=== PATIENT | female | born 1935 | race Caucasian/White ===

== ENCOUNTER → 2016-10-29 | Outpatient (CLI) | payer MEDICARE ==
[2016-10-29 11:43] LABS: Blood Urea Nitrogen 12 mg/dL (7-17); Non-African American GFR(MDRD) >60 (>60 ml/min/1.73 sqM)
--- NOTE | 2016-10-29 13:07 | CT ---
EXAMINATION TYPE: CT soft tissue neck w con DATE OF EXAM: 10/29/2016 12:44 PM COMPARISON: NONE HISTORY: Mass bas of tongue CT DLP: 389.2 mGycm CONTRAST: CT scan of the neck is performed with IV Contrast, patient injected with 95 mL of Omnipaque 300. Contrast enhanced CT of the neck was performed from the skull base through the lung apices. AIRWAY: At the base of the tongue on the right there is a homogeneously enhancing lesion measuring 1.2 x 0.6 x 0.8 cm. Direct visualization and tissue diagnosis is advised. The remaining supraglottic, glottic, and subglottic portions of the airway appear patent and free of additional mass. SALIVARY GLANDS: The submandibular and parotid glands are free of mass or inflammatory process. THYROID GLAND: No nodules or masses seen. LYMPH NODES: No adenopathy seen greater than 1cm. LUNG APICES: Linear density right upper lobe. OTHER: There is a homogeneously enhancing 2.2 x 2.0 x 1.3 cm mass situated between the esophagus and thoracic spine at the approximate C7-T1 level. This mass is nonspecific. Vascular structures are pat ent. Mild degenerative change cervical spine. No abscess seen. IMPRESSION: 1.At the base of the tongue on the right there is a homogeneously enhancing lesion measuring 1.2 x 0. 6 x 0.8 cm. Direct visualization and tissue diagnosis is advised. 2.There is a homogeneously enhancing 2.2 x 2.0 x 1.3 cm mass situated between the esophagus and thora cic spine at the approximate C7-T1 level. This mass is nonspecific.
== END | disposition home or self-care (01) ==
LOC: RADCTMAIN 11:02
PROVIDERS: ATTEND Otolaryngology
DX: K14.8 Other diseases of tongue (principal); K22.8 Other specified diseases of esophagus
CPT/HCPCS: 82565; 84520; 70491; 36415; Q9967

== ENCOUNTER 2016-11-13 11:54 | Day surgery (SDC) | payer MEDICARE ==
[2016-11-10 13:07] VITALS: BMI 37.8
[~2016-11-13 11:54] MED LIST: DEXAMETHASONE SOD PHOSPHATE 10 MG/ML 1 ML VIAL IV ONE; DEXAMETHASONE SOD PHOSPHATE 4 MG/ML 1 ML VIAL IV ONE; FAMOTIDINE 20 MG/2 ML VIAL IV ONE; HYDROmorphone 1 MG/ML 1 ML SYRINGE IVP PRN; LACTATED RINGERS 1,000 ML IV SCH; ONDANSETRON 4 MG/2 ML VIAL IVP ONE; Pre Op ABX Message 1 EACH MISC MISCELLANE ONE
[2016-11-13] MEDS ORDERED: LACTATED RINGERS 1,000 ML IV ONE ×2 (12:40→15:41)
[2016-11-13] MEDS ORDERED: LIDOCAINE 1% 20 ML VIAL (10MG/ML) FOR IV START INTRADERMA ONE (12:41)
[2016-11-13 13:20] LABS: INR 1.1 (<1.1); Prothrombin Time 10.7 sec (9.0-12.0)
[2016-11-13] MEDS ORDERED: NALOXONE 0.4 MG/ML 1 ML VIAL ONE (14:10)
[2016-11-13] MEDS ORDERED: MIDAZOLAM 2 MG/2 ML VIAL ONE (14:10)
[2016-11-13] MEDS ORDERED: LIDOCAINE 1% INJ 10MG/ML (20 ML MDV) ONE (14:10)
[2016-11-13] MEDS ORDERED: PROPOFOL 10 MG/ML 20 ML VIAL IV ONE (14:10)
[2016-11-13] MEDS ORDERED: fentaNYL (PF) 50 MCG/ML 2 ML AMP ONE (14:10)
[2016-11-13] MEDS ORDERED: SUCCINYLCHOLINE CHLORIDE 100 MG/5 ML SYR IV ONE (14:10)
[2016-11-13 15:16] VITALS: TEMP 997.1
[2016-11-13] MEDS ORDERED: hydrALAZINE HCL 20 MG/ML 1 ML VIAL IVP ONE (15:16)
--- NOTE | 2016-11-13 15:21 | P.OP ---
Date of Procedure: 11/13/16 Preoperative Diagnosis: Mass base of tongue right side Cough Postoperative Diagnosis: Same Procedure(s) Performed: Direct microscopic laryngoscopy and biopsy of right base of tongue lesion Bronchoscopy Anesthesia: JUAN MA Surgeon: Junior Burns Estimated Blood Loss (ml): 5 Pathology: other (Base of tongue right side) Condition: stable Disposition: PACU Indications for Procedure: This patient had an MRI scan done demonstrating a mass measuring 1.6 x 1.2 cm to the right the midline between the esophagus and C7 and T1 vertebrae. 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 Upon my examination the patient was found have a mass of the right base of tongue and biopsy was recommended. For this mass is located between the esophagus and the cervical vertebrae she was sent to Dr. Neymar Saravia office for a consultation. Operative Findings: Patient had evidence of a right base of tongue a lymphoid lesion that was removed and biopsied. Patient had evidence of some chronic bronchitis upon bronchoscopy but no specific tumors or masses are seen. We did not do the esophagoscopy as we will defer to Dr. Blackmon 10:00. Description of Procedure: Patient was taken to the operative room and placed in the supine position. A general inhalation anesthetic was administered to the patient by mask and subsequently intubated with a cuffed endotracheal tube by the department of anesthesia. A Jako laryngoscope was placed into the patient's mouth with care to avoid any trauma to the lips teeth gums and tongue. Jako laryngoscope was inserted tooth guard was placed and the entire Karen and hypopharynx was evaluated including the piriform sinus, aryepiglottic folds, true and false cords, etc. etc. Was placed on suspension on a Lewy and magnified with a microscope. A lesion of the right base of tongue was removed with biopsy forceps and bleeding stopped spontaneously. Instrumentation was removed and a bronchoscope was then inserted and all 12 segments of the lungs were evaluated. There were no signs of any endobronchial lesions. There was evidence of a large amount of mucus of the pulmonary tree. Patient tolerated this well and follow-up will be in the office in 1 week.
[2016-11-13 15:41] VITALS: RESP 18
[2016-11-13 16:31] VITALS: BP 110/67; PULSE 87
== END 2016-11-13 16:53 | disposition home or self-care (01) ==
LOC: OR 11:54
PROVIDERS: ATTEND Otolaryngology
DX: K14.0 Glossitis (principal); I10 Essential (primary) hypertension; I48.91 Unspecified atrial fibrillation; Z79.01 Long term (current) use of anticoagulants; E07.9 Disorder of thyroid, unspecified; F41.9 Anxiety disorder, unspecified; E78.00 Pure hypercholesterolemia, unspecified; H40.9 Unspecified glaucoma; Z79.2 Long term (current) use of antibiotics; Z79.52 Long term (current) use of systemic steroids; Z79.899 Other long term (current) drug therapy; Z88.5 Allergy status to narcotic agent; Z88.0 Allergy status to penicillin; Z91.09 Other allergy status, other than to drugs and biological substances
CPT/HCPCS: 88305; 85610; 31535; 31622; J2250; J0360; J1100; J2310; J2405; J2001; J3010; J1170; J0330; J2704

== ENCOUNTER → 2016-12-20 | Outpatient (CLI) | payer MEDICARE ==
--- NOTE | 2016-12-21 11:10 | PE ---
EXAMINATION TYPE: PET CT fusion skull to thigh DATE OF EXAM: 12/20/2016 1:56 PM COMPARISON: CT neck 10/29/2016 Prior PET/CT: None HISTORY: Head and neck cancer TECHNIQUE: Following the intravenous administration of 12.58 mCi of F-18 FDG, whole body images are performed from the skull base to the midthigh. Images are reviewed on the computer in the coronal, a xial, and sagittal planes. Reconstructed rotating images are created on independent workstation and reviewed on the computer. A localization and attenuation correction CT is performed in conjunction with the PET scan. DLP: 86.47 and 395.99 mGycm SCAN: Initial Blood glucose: 115 mg/dL Average Mediastinum SUV: 2.53 Average Liver SUV: 2.93 FINDINGS: NECK: The abnormal density identified at the thoracic inlet within the base of the neck is less dist inct on these noncontrast localization CT images. This measures 1.9 Hounsfield units likely inflammat ory in nature. Suspicious hypermetabolic activity is not identified. A low-grade neoplasm however can not be entirely excluded. Dedicated CT neck images are obtained and reviewed. SUV value of the neck mass the thoracic inlet is 1.8 on these images. Subtle slight increased uptake in the posterior right tongue may be present est imated at 4 SUV value. PET Image 32. THORAX: No abnormal uptake ABDOMEN: No abnormal uptake PELVIS: No abnormal uptake OSSEOUS STRUCTURES: No abnormal uptake LOCALIZATION CT: Diverticular changes are within the sigmoid colon. The density posterior to the trac hea at the thoracic inlet is estimated to measure 1.9 x 1.3 cm on this examination. This is less well delineated within the previous CT neck. Ascending thoracic aorta at the main pulmonary artery measur es 3.1 cm. The main pulmonary artery at the bifurcation measures 2.5 cm. Coronary artery calcificatio n is noted. No suspicious changes are evident CT neck localization images. There is anterior abdomina l wall hernia containing mesenteric fat at the periumbilical region. COMPARISON: Neck mass appears stable from comparison bolus well visualized lack of intravenous contra st IMPRESSION: 1. Neck mass identified on CT 10/29/2016 is again identified although no suspicious radiotracer accumulation is evident to suggest hy permetabolic neoplasm. Consider monitoring with CT with contrast. This area likely represents benign etiology. 2. There is some subtle increased uptake along the posterior right tongue region which could be evalu ated with direct visualization.
== END ==
LOC: RADPETMAIN 10:23
PROVIDERS: ATTEND Thoracic Surgery (Cardiothoracic Vascular Surgery)
DX: R22.1 Localized swelling, mass and lump, neck (principal)
CPT/HCPCS: 78815; A9552

== ENCOUNTER → 2017-07-10 | Outpatient (CLI) | payer MEDICARE ==
[2017-07-10 14:00] LABS: Blood Urea Nitrogen 18 mg/dL (7-17); Non-African American GFR(MDRD) >60 (>60 ml/min/1.73 sqM)
--- NOTE | 2017-07-10 16:02 | CT ---
EXAMINATION TYPE: CT chest w con DATE OF EXAM: 07/10/2017 COMPARISON: PET/CT dated 12/20/2016. HISTORY: Localized swelling/mass in neck. History of head and neck cancer. CT DLP: 455.5 mGycm. Automated Exposure Control for Dose Reduction was Utilized. TECHNIQUE: CT scan of the thorax is performed following with IV Contrast, patient injected with 100 mL of Omnipaque 300. FINDINGS: LUNGS: The lungs are grossly clear, there is no concerning parenchymal mass or nodule identified. M inimal subsegmental atelectasis is seen within the posterior medial right lung base and dependent lef t lower lung. Pleural parenchymal scarring is also noted within the anterior left lower lung. There i s no pleural effusion or pneumothorax seen. The tracheobronchial tree is patent. MEDIASTINUM: There are no greater than 1 cm hilar or mediastinal lymph nodes. No pericardial effusi on is seen. OTHER: Placing mass effect upon the esophagus again at the level of the thoracic inlet within the pre vertebral space there is a similar appearing 2.0 x 1.3 cm oval, well-circumscribed hyperdense mass th at is unchanged from the prior exam of 10/29/2016. This was noted areas non-hypermetabolic on the previ ous PET/CT dated 12/18/2016. Mild multilevel degenerative changes of thoracic spine are noted. IMPRESSION: 1. Stable oval 2.0 cm well-circumscribed mass posterior to the esophagus at the thoracic inlet unchan ged from the exam of 10/29/2016 and favored to be benign although continued CT surveillance is again re commended. 2. No new pulmonary nodule or mass. No mediastinal adenopathy. No suspicious osseous lesion.
== END | disposition home or self-care (01) ==
LOC: RADCTMAIN 13:25
PROVIDERS: ATTEND Thoracic Surgery (Cardiothoracic Vascular Surgery)
DX: R22.2 Localized swelling, mass and lump, trunk (principal)
CPT/HCPCS: 82565; 84520; 71260; 36415; Q9967

== ENCOUNTER → 2018-08-04 | Outpatient (CLI) | payer MEDICARE ==
[2018-08-04 10:27] LABS: Blood Urea Nitrogen 12 mg/dL (7-17)
--- NOTE | 2018-08-04 11:10 | CT ---
EXAMINATION TYPE: CT chest w con DATE OF EXAM: 08/04/2018 COMPARISON: 07/10/2017 and 12/20/2016 HISTORY: 83-year-old female localized swelling, neck mass, Follow up scan. TECHNIQUE: Contiguous axial scanning of the chest after the administration of 100 mL of Isovue M300. Coronal/sagittal reconstructions performed. CT DLP: 769mGycm. Automatic exposure control utilized for a dose reduction. FINDINGS: Heart upper limits of normal in size without pericardial effusion. Mitral annular calcifications are present as well as coronary vessel calcifications. Aorta normal caliber with conventional arch vessel branching anatomy. No thoracic lymphadenopathy by CT size criteria. Biapical pleural parenchymal scarring. The nodule in the posterior right paraesophageal region at the level of the thoracic inlet is redemon strated. It measures 2.1 x 1.2 cm versus 2.0 x 1.3 cm on 07/10/2017 and 1.9 x 1.3 cm on 12/20/2016, no t significantly changed allowing for some differences in measurement technique. It has relatively sim ilar enhancement as the atrophic thyroid gland. Mild centrilobular emphysema and some scattered interstitial scarring especially posteriorly in the m id and lower lungs. Some cicatricial volume loss is present in the medial right lower lobe. No consol idation or pleural effusion. Mild intrahepatic and extrahepatic biliary ductal dilatation appears chronic in this patient, stable from 07/10/2017. Diverticulum of the second portion of the duodenum ejecting into the pancreatic head region. 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 Bones: Endplate spondylosis mid to lower thoracic spine. Moderate degenerative disc disease. No osseo us destructive process. IMPRESSION: 1. Note that only the chest was imaged. Allowing for some differences in measurement technique, the o void 2.1 x 1.2 cm nodule behind the esophagus at the level of the thoracic inlet is unchanged from . This suggests a benign etiology. Enhancement is similar to the atrophic thyroid gland. Possi ble ectopic/exophytic thyroid nodule. 2. COPD with mild emphysema and scattered interstitial scarring. 3. Numerous cortical defects within the partially visualized right kidney suggests sequela of prior v ascular or infectious insults.
== END | disposition home or self-care (01) ==
LOC: RADCTMAIN 09:56
PROVIDERS: ATTEND Thoracic Surgery (Cardiothoracic Vascular Surgery)
DX: J43.9 Emphysema, unspecified (principal); J84.9 Interstitial pulmonary disease, unspecified; R91.1 Solitary pulmonary nodule
CPT/HCPCS: 82565; 84520; 71260; 36415; Q9967

== ENCOUNTER → 2019-09-14 | Outpatient (CLI) | payer MEDICARE ==
--- NOTE | 2019-09-14 13:31 | CT ---
EXAMINATION TYPE: CT chest w con DATE OF EXAM: 09/14/2019 COMPARISON: Chest CT August 04, [address] July 10, 2017 HISTORY: Localized swelling, mass, lump on anterior chest. CT DLP: 774 mGycm. Automated Exposure Control for Dose Reduction was Utilized. TECHNIQUE: CT scan of the thorax is performed following with IV Contrast, patient injected with 100 mL of Isovue 300. FINDINGS: LUNGS: There is medial right lower lobe linear scarring redemonstrated extending from the hilum. Ther e is additional scattered mild linear scarring and/or atelectasis in both bases. No suspicious nodule s or masses. There is no pleural effusion or pneumothorax seen. Elevated right hemidiaphragm is redem onstrated. The tracheobronchial tree is patent. MEDIASTINUM: There are no new greater than 1 cm hilar or mediastinal lymph nodes. No cardiomegaly o r pericardial effusion is seen. There is redemonstration of lesion while the findings at level of th oracic inlet prevertebral region measuring 2.1 x 1.3 cm current study image. In just posterior to the esophagus that is unchanged from prior studies. On current study there may be contiguous extension f rom the right thyroid lobe with narrow thyroid tissue axial image 7. Thyroid gland is stable and some what small in size otherwise. OTHER: Slight scoliotic curvature with multilevel spurring in the spine. Severe spurring lower thorac ic levels anteriorly again seen. Mild central intrahepatic and extra hepatic biliary dilatation coron al image 30 not significantly changed from prior studies. IMPRESSION: Overall stable findings, stable ovoid anterior superior mediastinal lesion at level of th oracic inlet strongly favored benign given interval stability and ametabolic finding on PET 2017, I d o favor ectopic thyroid or exophytic thyroid nodule given its enhancement similar to adjacent thyroid and possible small isthmus of tissue on current study extending from small size thyroid gland.
== END ==
LOC: RADCTMAIN 11:22
PROVIDERS: ATTEND Thoracic Surgery (Cardiothoracic Vascular Surgery)
DX: R22.2 Localized swelling, mass and lump, trunk (principal)
CPT/HCPCS: 71260; Q9967

== ENCOUNTER 2020-01-19 13:00 | Emergency (ER) | payer MEDICARE ==
[2020-01-19 13:10] VITALS: BP 131/87; PULSE 103; RESP 20; TEMP 98.3
[2020-01-19] MEDS ORDERED: SILVER NITRATE APPLICATOR 1 EACH STICK..EA. TOPICAL STA (13:22)
--- NOTE | 2020-01-19 13:34 | ED ---
ENT HPI - General Chief complaint: ENT Stated complaint: bloody nose Time Seen by Provider: 01/19/20 13:11 Source: patient Mode of arrival: ambulatory Limitations: no limitations - History of Present Illness Initial comments: Patient is a 84-year-old female with history of A. fib presenting to emergency Department with a chief complaint of a nosebleed. Patient reports the last 2 weeks this is her third epistaxis. Patient reports most recent was 5 days ago. Patient reports the epistaxis has occurred for the past 2 hours. States she attempted pressure and Afrin with minimal improvement in symptoms. States she currently takes Coumadin for her A. fib. Denies any headaches, lightheadedness, dizziness nausea vomiting diarrhea. Denies any direct trauma to the nose. - Related Data Home Medications Medication Instructions Recorded Confirmed Atorvastatin [Lipitor] 40 mg PO HS 03/27/14 11/10/16 DULoxetine HCL [Cymbalta] 60 mg PO HS 03/27/14 11/10/16 Latanoprost Ophth [Xalatan 0.005%] 1 drops BOTH EYES HS 03/27/14 11/10/16 Levothyroxine Sodium [Synthroid] 100 mcg PO DAILY 03/27/14 11/10/16 Lisinopril [Zestril] 10 mg PO HS 03/27/14 11/10/16 Triamterene/Hydrochlorothiazid 0.5 tab PO DAILY 03/27/14 11/10/16 [Maxzide 37.5-25] hydrALAZINE HCL [Apresoline] 25 mg PO DAILY 03/27/14 11/10/16 Calcium Carbonate/Vitamin D3 1 each PO BID 11/10/16 11/10/16 [Calcium 600-Vit D3 400 Cap[place]] Cetirizine HCl [Zyrtec] 10 mg PO DAILY PRN 11/10/16 11/10/16 Dorzolamide 2% [Trusopt 2%] 1 drops BOTH EYES BID 11/10/16 11/13/16 Multivitamins, Thera [Multivitamin] 1 tab PO DAILY 11/10/16 11/10/16 Warfarin Sodium 3 tab PO SUMOTUTHFRSA 11/10/16 11/10/16 Warfarin [Coumadin] 3 mg PO WE 11/10/16 11/10/16 traMADol HCL/ACETAMINOPHEN 2 tab PO Q6HR PRN 11/10/16 11/10/16 [Ultracet 37.5-325] Allergies Allergy/AdvReac Type Severity Reaction Status Date / Time adhesive tape Allergy IV BANDAGE Verified 01/19/20 13:10 CAUSED SKIN REDNESS codeine Allergy headache Verified 01/19/20 13:10 hydroxyzine HCl Allergy Rash/Hives Verified 01/19/20 13:10 [From Vistaril] hydroxyzine pamoate Allergy Rash/Hives Verified 01/19/20 13:10 [From Vistaril] Penicillins Allergy Rash/Hives Verified 01/19/20 13:10 Review of Systems ROS Statement: Those systems with pertinent positive or pertinent negative responses have been documented in the HPI. ROS Other: All systems not noted in ROS Statement are negative. Past Medical History Past Medical History: Cancer, Fibromyalgia, Hyperlipidemia, Hypertension, Osteoarthritis (OA), Thyroid Disorder Additional Past Medical History / Comment(s): varicose veins, glaucoma, uses cane, has scar tissue onrt kidney from nephritis as teen, hx skin cancer History of Any Multi-Drug Resistant Organisms: None Reported Past Surgical History: Cholecystectomy, Hysterectomy, Joint Replacement, Tonsillectomy Additional Past Surgical History / Comment(s): rt knee replacement 2013 Past Anesthesia/Blood Transfusion Reactions: Motion Sickness Past Psychological History: Anxiety Smoking Status: Never smoker Past Alcohol Use History: None Reported Past Drug Use History: None Reported - Past Family History Mother Family Medical History: Cancer Son(s) Family Medical History: Cancer General Exam Limitations: no limitations General appearance: alert, in no apparent distress Head exam: Present: atraumatic, normocephalic, normal inspection Eye exam: Present: normal appearance, PERRL, EOMI Pupils: Present: normal accommodation ENT exam: Present: normal exam ( epistaxis), mucous membranes moist, TM's normal bilaterally, normal external ear exam. Absent: normal oropharynx (Able to visualize a right nostril anterior epistaxis) Neck exam: Present: normal inspection, full ROM Respiratory exam: Present: normal lung sounds bilaterally Cardiovascular Exam: Present: regular rate, normal rhythm, normal heart sounds Extremities exam: Present: normal inspection, full ROM Back exam: Present: normal inspection, full ROM Neurological exam: Present: alert, oriented X3 Psychiatric exam: Present: normal affect, normal mood Skin exam: Present: warm, dry, intact, normal color Course Vital Signs 05/21/20 13:07 Temperature 98.3 F Pulse Rate 103 H Respiratory 20 Rate Blood Pressure 131/87 O2 Sat by Pulse 99 Oximetry Procedures - Procedures Initial comment: Right nostril, anterior epistaxis, silver nitrate cautery stick, patient tolerated procedure well, procedure successful. Medical Decision Making - Medical Decision Making Patient is an 84-year-old female with history of A. fib and currently taking Coumadin presenting to emergency Department with a chief complaint of a nosebleed. On exam I was able to visualize an anterior nosebleed in the right nostril. Silver nitrate cautery stick was used. Patient tolerated procedure well. The bleeding resolved. INR of 1.4. Patient feels well is ready go home. Patient advised not to stay close to highly vented areas. Advised to apply Vaseline in the morning and night. Also advised to use [place] few Times a day to avoid epistaxis. Return parameters were thoroughly discussed the patient is understanding and agreeable. Case discussed with physician. - Lab Data Lab Results 01/19/20 Range/Units 13:32 PT 14.0 H (9.0-12.0) sec INR 1.4 H (<1.2) APTT 29.3 (22.0-30.0) sec Disposition Clinical Impression: Acute anterior epistaxis Disposition: HOME SELF-CARE Condition: Stable Instructions (If sedation given, give patient instructions): Nosebleed (ED) Additional Instructions: Follow-up with primary care. Return to emergency department if symptoms worsen. Is patient prescribed a controlled substance at d/c from ED?: No Referrals: Julio Zambrano DO [Primary Care Provider] - 1-2 days Time of Disposition: 14:18
[2020-01-19 14:09] LABS: INR 1.4 (<1.2); Partial Thromboplastin Time 29.3 sec (22.0-30.0)
== END 2020-01-19 14:45 | disposition home or self-care (01) ==
LOC: EC 13:00
DX: R04.0 Epistaxis (principal); I48.91 Unspecified atrial fibrillation; M79.7 Fibromyalgia; E78.5 Hyperlipidemia, unspecified; I10 Essential (primary) hypertension; M19.90 Unspecified osteoarthritis, unspecified site; E07.9 Disorder of thyroid, unspecified; F41.9 Anxiety disorder, unspecified; H40.9 Unspecified glaucoma; Z79.890 Hormone replacement therapy; Z79.01 Long term (current) use of anticoagulants; Z79.899 Other long term (current) drug therapy; Z88.5 Allergy status to narcotic agent; Z91.048 Other nonmedicinal substance allergy status; Z88.8 Allergy status to other drugs, medicaments and biological substances; Z88.0 Allergy status to penicillin; Z85.828 Personal history of other malignant neoplasm of skin; Z99.89 Dependence on other enabling machines and devices; Z96.659 Presence of unspecified artificial knee joint
CPT/HCPCS: 30901; 36415; 85610; 85730; 99283

== ENCOUNTER 2020-09-04 11:48 | Inpatient (IN) | payer MEDICARE ==
[2020-09-04] MEDS ORDERED: SODIUM CHLORIDE 0.9% 500 ML 500 ML IV STA ×2 (12:29→13:48)
--- NOTE | 2020-09-04 12:33 | ED ---
General Adult HPI - General Source: patient, family, RN notes reviewed Mode of arrival: wheelchair Limitations: no limitations <Tyree Sheppard - Last Filed: 09/04/20 14:25> <Tacos Cardenas - Last Filed: 09/04/20 14:50> - General Chief complaint: Weakness Stated complaint: mobility issues, weakness Time Seen by Provider: 09/04/20 12:19 - History of Present Illness Initial comments: 85-year-old female with a past medical history of fibromyalgia, hyperlipidemia, hypertension, osteoarthritis, right knee replacement presents to the emergency room for a chief complaint of weakness. Daughter reports that patient has been more weak for the past couple days at home. States she normally gets around well with a walker however daughter is having to help her with the help of her brother. States she is somewhat confused as well which is not normal for patient. Daughter is concerned she may have a urinary tract infection. No fevers or chills. Daughter states that her knees are hurting and she was supposed to have one replaced but is not a good surgical candidate. She thinks this is contributing to her difficulty walking.Patient has no other complaints at this time including shortness of breath, chest pain, abdominal pain, nausea or vomiting, headache, or visual changes. (Tyree Sheppard) - Related Data Home Medications Medication Instructions Recorded Confirmed Atorvastatin [Lipitor] 40 mg PO HS 03/27/14 09/04/20 DULoxetine HCL [Cymbalta] 60 mg PO HS 03/27/14 09/04/20 Latanoprost Ophth [Xalatan 0.005%] 1 drops BOTH EYES HS 03/27/14 09/04/20 Levothyroxine Sodium [Synthroid] 100 mcg PO DAILY 03/27/14 09/04/20 Lisinopril [Zestril] 10 mg PO DAILY 03/27/14 09/04/20 Triamterene/Hydrochlorothiazid 0.5 tab PO DAILY 03/27/14 09/04/20 [Maxzide 37.5-25] hydrALAZINE HCL [Apresoline] 25 mg PO HS 03/27/14 09/04/20 Calcium Carbonate/Vitamin D3 1 tab PO DAILY 11/10/16 09/04/20 [Calcium 600-Vit D3 400 Caplet] Cetirizine HCl [Zyrtec] 10 mg PO DAILY PRN 11/10/16 09/04/20 Dorzolamide 2% [Trusopt 2%] 1 drops BOTH EYES BID 11/10/16 09/04/20 Warfarin Sodium 2.5 tab PO Q48H 11/10/16 09/04/20 Warfarin [Coumadin] 5 mg PO Q48H 11/10/16 09/04/20 traMADol HCL/ACETAMINOPHEN 1 tab PO BID 11/10/16 09/04/20 [Ultracet 37.5-325] Allergies Allergy/AdvReac Type Severity Reaction Status Date / Time adhesive tape Allergy IV BANDAGE Verified 09/04/20 13:57 CAUSED SKIN REDNESS codeine Allergy headache Verified 09/04/20 13:57 hydroxyzine HCl Allergy Rash/Hives Verified 09/04/20 13:57 [From Vistaril] hydroxyzine pamoate Allergy Rash/Hives Verified 09/04/20 13:57 [From Vistaril] Penicillins Allergy Rash/Hives Verified 09/04/20 13:57 Review of Systems ROS Other: All systems not noted in ROS Statement are negative. <Tyree Sheppard - Last Filed: 09/04/20 14:25> ROS Other: All systems not noted in ROS Statement are negative. <Tacos Cardenas - Last Filed: 09/04/20 14:50> ROS Statement: Those systems with pertinent positive or pertinent negative responses have been documented in the HPI. Past Medical History Past Medical History: Cancer, Fibromyalgia, Hyperlipidemia, Hypertension, Osteoarthritis (OA), Thyroid Disorder Additional Past Medical History / Comment(s): varicose veins, glaucoma, uses cane, has scar tissue onrt kidney from nephritis as teen, hx skin cancer History of Any Multi-Drug Resistant Organisms: None Reported Past Surgical History: Cholecystectomy, Hysterectomy, Joint Replacement, Ton sillectomy Additional Past Surgical History / Comment(s): rt knee replacement 2013 Past Anesthesia/Blood Transfusion Reactions: Motion Sickness Past Psychological History: Anxiety Past Alcohol Use History: None Reported Past Drug Use History: None Reported - Past Family History Mother Family Medical History: Cancer Son(s) Family Medical History: Cancer <Tyree Sheppard P - Last Filed: 09/04/20 14:25> General Exam Limitations: no limitations General appearance: alert, in no apparent distress Head exam: Present: atraumatic, normocephalic, normal inspection Eye exam: Present: normal appearance ENT exam: Present: normal exam, mucous membranes moist Neck exam: Present: normal inspection. Absent: tenderness, meningismus, lymphadenopathy Respiratory exam: Present: normal lung sounds bilaterally. Absent: respiratory distress, wheezes, rales, rhonchi, stridor Cardiovascular Exam: Present: tachycardia, irregular rhythm GI/Abdominal exam: Present: soft, normal bowel sounds. Absent: distended, tenderness, guarding, rebound, rigid Neurological exam: Present: alert, oriented X3 <Tyree Sheppard - Last Filed: 09/04/20 14:25> Course <Tacos Cardenas - Last Filed: 09/04/20 14:50> Vital Signs 09/04/20 11:56 Temperature 97.7 F Pulse Rate 78 Respiratory 16 Rate Blood Pressure 126/110 O2 Sat by Pulse 97 Oximetry - Reevaluation(s) Reevaluation #1: 09/04/20 14:50 PA supervision: I personally evaluate this case patient present with complaints of weakness. She does have evidence of dehydration a urinary tract infection as well as hypercalcemia likely on the basis of dehydration. Did discuss the case with Dr. Zambrano. Patient be admitted place on appropriate antibiotics and IV fluids. (Tacos Cardenas) EKG Findings - EKG Comments: EKG Findings:: Atrial fibrillation, ventricular rate 107, QRS duration 76, QTC 419 <Tyree Sheppard - Last Filed: 09/04/20 14:25> Medical Decision Making - Lab Data Result diagrams: 09/04/20 12:44 09/04/20 12:44 <Tyree Sheppard - Last Filed: 09/04/20 14:25> - Lab Data Result diagrams: 09/04/20 12:44 09/04/20 12:44 <Tacos Cardenas - Last Filed: 09/04/20 14:50> - Medical Decision Making Vitals are stable however patient is in atrial fibrillation which she has a history of and takes coumadin. Heart rate in the low 110s generally. Laboratory evaluation does reveal leukocytosis as well as dehydration with hemoconcentration and BUN to creatinine ratio of 32. Hypercalcemia likely secondary to dehydration, patient given fluids. Magnesium is 1.5 this was replaced orally. She does also have evidence of a urinary tract infection with positive nitrates small leukocyte esterase and 5 white blood cells. This is treated with Rocephin. At this time patient will be admitted for dehydration and antibiotic therapy. Dr. Cardenas to notify Dr. Zambrano. Chest x-ray reveals increased interstitial opacities bilaterally which could reflect pulmonary vascular congestion or atypical pneumonias. No cough or peripheral edema. I did compare previous x-ray from 2013 and these do appear similar. (Tyree Sheppard) - Lab Data Lab Results 09/04/20 09/04/20 09/04/20 Range/Units 12:44 12:44 12:44 WBC 12.6 H (3.8-10.6) k/uL RBC 5.41 H (3.80-5.40) m/uL Hgb 17.6 H (11.4-16.0) gm/dL Hct 51.3 H (34.0-46.0) % MCV 95.0 (80.0-100.0) fL MCH 32.5 (25.0-35.0) pg MCHC 34.2 (31.0-37.0) g/dL RDW 12.3 (11.5-15.5) % Plt Count 213 (150-450) k/uL MPV 9.6 Neutrophils % 72 % Lymphocytes % 18 % Monocytes % 6 % Eosinophils % 1 % Basophils % 1 % Neutrophils # 9.1 H (1.3-7.7) k/uL Lymphocytes # 2.3 (1.0-4.8) k/uL Monocytes # 0.7 (0-1.0) k/uL Eosinophils # 0.2 (0-0.7) k/uL Basophils # 0.1 (0-0.2) k/uL PT (9.0-12.0) sec INR (<1.2) APTT (22.0-30.0) sec Sodium 134 L (137-145) mmol/L Potassium 4.5 (3.5-5.1) mmol/L Chloride 98 (98-107) mmol/L Carbon Dioxide 27 (22-30) mmol/L Anion Gap 9 mmol/L BUN 34 H (7-17) mg/dL Creatinine 1.05 H (0.52-1.04) mg/dL Est GFR (CKD-EPI)AfAm 56 (>60 ml/min/1.73 sqM) Est GFR (CKD-EPI)NonAf 49 (>60 ml/min/1.73 sqM) Glucose 156 H (74-99) mg/dL Calcium 13.1 H* (8.4-10.2) mg/dL Magnesium 1.5 L (1.6-2.3) mg/dL Total Bilirubin 1.0 (0.2-1.3) mg/dL AST 50 H (14-36) U/L ALT 28 (4-34) U/L Alkaline Phosphatase 94 (38-126) U/L Total Protein 8.2 (6.3-8.2) g/dL Albumin 4.7 (3.5-5.0) g/dL Urine Color Urine Appearance (Clear) Urine pH (5.0-8.0) Ur Specific [place] (1.001-1.035) Urine Protein (Negative) Urine Glucose (UA) (Negative) Urine Ketones (Negative) Urine Blood (Negative) Urine Nitrite (Negative) Urine Bilirubin (Negative) Urine Urobilinogen (<2.0) mg/dL Ur Leukocyte Esterase (Negative) Urine RBC (0-5) /hpf Urine WBC (0-5) /hpf Amorphous Sediment (None) /hpf Urine Bacteria (None) /hpf Urine Mucus (None) /hpf Coronavirus (PCR) Not Detected (Not Detectd) 09/04/20 09/04/20 Range/Units 13:10 13:42 WBC (3.8-10.6) k/uL RBC (3.80-5.40) m/uL Hgb (11.4-16.0) gm/dL Hct (34.0-46.0) % MCV (80.0-100.0) fL MCH (25.0-35.0) pg MCHC (31.0-37.0) g/dL RDW (11.5-15.5) % Plt Count (150-450) k/uL MPV Neutrophils % % Lymphocytes % % Monocytes % % Eosinophils % % Basophils % % Neutrophils # (1.3-7.7) k/uL Lymphocytes # (1.0-4.8) k/uL Monocytes # (0-1.0) k/uL Eosinophils # (0-0.7) k/uL Basophils # (0-0.2) k/uL PT 25.1 H (9.0-12.0) sec INR 2.6 H (<1.2) APTT 36.1 H (22.0-30.0) sec Sodium (137-145) mmol/L Potassium (3.5-5.1) mmol/L Chloride (98-107) mmol/L Carbon Dioxide (22-30) mmol/L Anion Gap mmol/L BUN (7-17) mg/dL Creatinine (0.52-1.04) mg/dL Est GFR (CKD-EPI)AfAm (>60 ml/min/1.73 sqM) Est GFR (CKD-EPI)NonAf (>60 ml/min/1.73 sqM) Glucose (74-99) mg/dL Calcium (8.4-10.2) mg/dL Magnesium (1.6-2.3) mg/dL Total Bilirubin (0.2-1.3) mg/dL AST (14-36) U/L ALT (4-34) U/L Alkaline Phosphatase (38-126) U/L Total Protein (6.3-8.2) g/dL Albumin (3.5-5.0) g/dL Urine Color Light Yellow Urine Appearance Cloudy H (Clear) Urine pH 6.0 (5.0-8.0) Ur Specific [place] 1.013 (1.001-1.035) Urine Protein Negative (Negative) Urine Glucose (UA) Negative (Negative) Urine Ketones Negative (Negative) Urine Blood Negative (Negative) Urine Nitrite Positive H (Negative) Urine Bilirubin Negative (Negative) Urine Urobilinogen <2.0 (<2.0) mg/dL Ur Leukocyte Esterase Small H (Negative) Urine RBC 1 (0-5) /hpf Urine WBC 5 (0-5) /hpf Amorphous Sediment Rare H (None) /hpf Urine Bacteria Occasional H (None) /hpf Urine Mucus Rare H (None) /hpf Coronavirus (PCR) (Not Detectd) Disposition Is patient prescribed a controlled substance at d/c from ED?: No Time of Disposition: 14:33 <Tyree Sheppard - Last Filed: 09/04/20 14:25> <Tacos Cardenas - Last Filed: 09/04/20 14:50> Clinical Impression: Weakness, Dehydration, Hypomagnesemia, Hypercalcemia Disposition: ADMITTED IP TO THIS HOSP Referrals: Julio Zambrano DO [Primary Care Provider] - 1-2 days
[2020-09-04 12:53] LABS: Basophils # (A) 0.1 k/uL (0-0.2); Basophils % (A) 1 %; Eosinophils # (A) 0.2 k/uL (0-0.7); Eosinophils % (A) 1 %; HCT 51.3 % (34.0-46.0); HGB 17.6 gm/dL (11.4-16.0); Lymphocytes # (A) 2.3 k/uL (1.0-4.8); Lymphocytes % (A) 18 %; MCH 32.5 pg (25.0-35.0); MCHC 34.2 g/dL (31.0-37.0); Mean Platelet Volume 9.6; Monocytes # (A) 0.7 k/uL (0-1.0); Monocytes % (A) 6 %; Neutrophils # (A) 9.1 k/uL (1.3-7.7); Neutrophils % (A) 72 %; Platelet Count 213 k/uL (150-450); RBC 5.41 m/uL (3.80-5.40); RDW 12.3 % (11.5-15.5); WBC 12.6 k/uL (3.8-10.6)
[2020-09-04 13:03] LABS: Albumin 4.7 g/dL (3.5-5.0); Magnesium 1.5 mg/dL (1.6-2.3); Potassium 4.5 mmol/L (3.5-5.1); Total Protein 8.2 g/dL (6.3-8.2)
[2020-09-04 13:19] LABS: Calcium 13.1 mg/dL (8.4-10.2)
[2020-09-04 13:28] LABS: INR 2.6 (<1.2); Partial Thromboplastin Time 36.1 sec (22.0-30.0); Prothrombin Time 25.1 sec (9.0-12.0)
--- NOTE | 2020-09-04 13:45 | XR ---
EXAMINATION TYPE: XR chest 2V DATE OF EXAM: 09/04/2020 COMPARISON: 04/05/2014 HISTORY: 85-year-old female with weakness TECHNIQUE: AP and lateral views FINDINGS: The heart is mildly enlarged. Increased interstitial opacities bilaterally. No sizable effusion seen. IMPRESSION: 1. Mild cardiomegaly. 2. Increased interstitial opacities bilaterally. Findings could reflect pulmonary vascular congestion or atypical pneumonias. Clinically correlate.
[2020-09-04 14:10] LABS: Amorphous Sediment,Urine Rare /hpf; Appearance,Urine Cloudy (Clear); Bacteria,Urine Occasional /hpf; Bilirubin,Urine Negative (Negative); Blood,Urine Negative (Negative); Color,Urine Light Yellow; Glucose,Urine (UA) Negative (Negative); Ketones,Urine Negative (Negative); Leukocyte Esterase,Urine Small (Negative); Mucus,Urine Rare /hpf; Nitrite,Urine Positive (Negative); Protein,Urine Negative (Negative); RBC,Urine 1 /hpf (0-5); Specific Gravity,Urine 1.013 (1.001-1.035); Urobilinogen,Urine <2.0 mg/dL (<2.0); WBC,Urine 5 /hpf (0-5)
[2020-09-04] MEDS ORDERED: NALOXONE 0.4 MG/ML 1 ML VIAL IV PRN (14:25)
[2020-09-04] MEDS ORDERED: cefTRIAXone IN SWFI 1,000 MG/10 ML SYRINGE IVP STA (14:27)
[2020-09-04] MEDS ORDERED: LORATADINE 10 MG TAB PO PRN (14:27)
[2020-09-04] MEDS ORDERED: MAGNESIUM OXIDE 400 MG TAB PO STA (14:29)
[2020-09-04] MEDS: WARFARIN 5 MG TAB PO SCH (16:49)
[2020-09-04] MEDS: SODIUM CHLORIDE 0.9% 1,000 ML IV SCH (16:50)
[2020-09-04] MEDS: hydrALAZINE HCL 25 MG TAB PO SCH (21:31)
[2020-09-04] MEDS: traMADol-ACETAMINOP 37.5-325MG 1 EACH TAB PO SCH (21:31)
[2020-09-04] MEDS: DULoxetine HCL 60 MG CAPSULE.DR PO SCH (21:51)
[2020-09-04] MEDS: ATORVASTATIN 40 MG TAB PO SCH (21:52)
[2020-09-04] MEDS: LATANOPROST 0.005% OPHTH DROPS 2.5 ML BTL BOTH EYES SCH (22:20)
[2020-09-04] MEDS: DORZOLAMIDE HCL 2% DROPS 10 ML BTL BOTH EYES SCH (22:20)
[2020-09-05] MEDS: SODIUM CHLORIDE 0.9% 1,000 ML IV SCH ×2 (05:39→17:10)
[2020-09-05] MEDS: LEVOTHYROXINE 100 MCG TAB PO SCH (06:23)
[2020-09-05 08:08] LABS: Basophils % (A) 0 %; Eosinophils # (A) 0.1 k/uL (0-0.7); Eosinophils % (A) 1 %; HCT 43.9 % (34.0-46.0); Lymphocytes # (A) 2.5 k/uL (1.0-4.8); Lymphocytes % (A) 25 %; MCH 31.3 pg (25.0-35.0); MCHC 32.2 g/dL (31.0-37.0); MCV 97.4 fL (80.0-100.0); Monocytes # (A) 0.8 k/uL (0-1.0); Monocytes % (A) 8 %; Neutrophils # (A) 6.2 k/uL (1.3-7.7); Neutrophils % (A) 63 %; Platelet Count 200 k/uL (150-450); RBC 4.51 m/uL (3.80-5.40); RDW 12.8 % (11.5-15.5); WBC 9.9 k/uL (3.8-10.6)
[2020-09-05 08:13] LABS: HGB 14.1 gm/dL (11.4-16.0)
[2020-09-05] MEDS ORDERED: cefTRIAXone IN SWFI 1,000 MG/10 ML SYRINGE IVP SCH (09:00)
[2020-09-05 09:07] LABS: INR 2.5 (<1.2); Prothrombin Time 23.8 sec (9.0-12.0)
[2020-09-05] MEDS: CALCIUM CARB-VIT D 500 MG-5 MCG TAB PO SCH (09:42)
[2020-09-05] MEDS: traMADol-ACETAMINOP 37.5-325MG 1 EACH TAB PO SCH ×2 (09:48→19:40)
[2020-09-05] MEDS: DORZOLAMIDE HCL 2% DROPS 10 ML BTL BOTH EYES SCH ×2 (09:49→19:07)
[2020-09-05] MEDS: lisinopriL 10 MG TAB PO SCH (09:50)
[2020-09-05] MEDS: TRIAMTERENE-HCTZ 37.5-25MG 1 EACH TAB PO SCH (09:50)
[2020-09-05] MEDS ORDERED: Magnesium Replacement Protocol 1 EACH MISC MISCELLANE PRN ×2 (11:33→15:59)
[2020-09-05 11:52] LABS: African American GFR (CKD) 59.9 (60.0-200.0); Albumin 3.6 g/dL (3.80-4.90); Albumin/Globulin Ratio 1.71 (1.60-3.17); Anion Gap 6.3 mmol/L (4.00-12.00); Calcium 10.9 mg/dL (8.7-10.3); Carbon Dioxide 24.7 mmol/L (21.6-31.8); Globulin 2.1 g/dL (1.6-3.3); Magnesium 1.5 mg/dL (1.5-2.4); Non-African American GFR(CKD) 51.7 (60.0-200.0); Phosphorus 2.1 mg/dL (2.4-5.1); Potassium 4.3 mmol/L (3.5-5.5); Total Bilirubin 0.7 mg/dL (0.2-1.2); Total Protein 5.7 g/dL (6.2-8.2)
--- NOTE | 2020-09-05 15:33 | P.HPIM ---
History of Present Illness H&P Date: 09/05/20 Chief Complaint: Weakness, confusion This is an 85-year-old female with past medical history of atrial fibrillation, fibromyalgia, hyperlipidemia, hypertension, osteoarthritis, hypothyroidism, glaucoma, nephritis, anxiety, depression, skin cancer and multiple other medical issues, presented to the ER with complaints of increasing weakness over the last couple of days. Reports difficulty ambulating with walker, reports increased difficulty with stairs, denies falls, mild confusion. Denies chest pain, palpitations, shortness of breath. Denies abdominal pain, no nausea vomiting or diarrhea. Denies lightheadedness, dizziness or focal deficits. Coronavirus not detected. UA reported occasional bacteria and WBCs, positive for nitrates. Urine culture pending. Afebrile, elevated WBC on admission, now WNL. hemoglobin 17.6, down to 14.1. INR 2.5. Sodium 134, potassium 4.5, BUN 34, creatinine 1.05, calcium elevated at 13.1-possibly hemolyzed, magnesium 1.5, T bili and LFTs within normal limits with the exception of mild elevation of AST, 50. Systolic blood pressure in the high 80s on admission with mild tachycardia. Received IV fluids, antibiotics of Rocephin initiated .This morning, hematology unremarkable, INR 2.5, creatinine down to 1, calcium almost within normal limits, down to 10.9. Review of Systems ROS Other: All systems not noted in ROS Statement are negative. ROS Statement: Those systems with pertinent positive or pertinent negative responses have been documented in the HPI. 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, hx skin cancer History of Any Multi-Drug Resistant Organisms: None Reported Past Surgical History: Cholecystectomy, Hysterectomy, Joint Replacement, Tonsillectomy Additional Past Surgical History / Comment(s): rt knee replacement 2012 Past Anesthesia/Blood Transfusion Reactions: Motion Sickness Past Psychological History: Anxiety, Depression Smoking Status: Never smoker Past Alcohol Use History: None Reported Past Drug Use History: None Reported - Past Family History Mother Family Medical History: Cancer Son(s) Family Medical History: Cancer Medications and Allergies Home Medications Medication Instructions Recorded Confirmed Type Atorvastatin [Lipitor] 40 mg PO HS 03/27/14 09/04/20 History DULoxetine HCL [Cymbalta] 60 mg PO HS 03/27/14 09/04/20 History Latanoprost Ophth [Xalatan 0.005%] 1 drops BOTH EYES HS 03/27/14 09/04/20 History Levothyroxine Sodium [Synthroid] 100 mcg PO DAILY 03/27/14 09/04/20 History Lisinopril [Zestril] 10 mg PO DAILY 03/27/14 09/04/20 History Triamterene/Hydrochlorothiazid 0.5 tab PO DAILY 03/27/14 09/04/20 History [Maxzide 37.5-25] hydrALAZINE HCL [Apresoline] 25 mg PO HS 03/27/14 09/04/20 History Calcium Carbonate/Vitamin D3 1 tab PO DAILY 11/10/16 09/04/20 History [Calcium 600-Vit D3 400 Caplet] Cetirizine HCl [Zyrtec] 10 mg PO DAILY PRN 11/10/16 09/04/20 History Dorzolamide 2% [Trusopt 2%] 1 drops BOTH EYES BID 11/10/16 09/04/20 History Warfarin Sodium 2.5 tab PO Q48H 11/10/16 09/04/20 History Warfarin [Coumadin] 5 mg PO Q48H 11/10/16 09/04/20 History traMADol HCL/ACETAMINOPHEN 1 tab PO BID 11/10/16 09/04/20 History [Ultracet 37.5-325] Allergies Allergy/AdvReac Type Severity Reaction Status Date / Time adhesive tape Allergy IV BANDAGE Verified 09/04/20 13:57 CAUSED SKIN REDNESS codeine Allergy headache Verified 09/04/20 13:57 hydroxyzine HCl Allergy Rash/Hives Verified 09/04/20 13:57 [From Vistaril] hydroxyzine pamoate Allergy Rash/Hives Verified 09/04/20 13:57 [From Vistaril] Penicillins Allergy Rash/Hives Verified 09/04/20 13:57 Physical Exam Vitals: Vital Signs Temp Pulse Pulse Pulse Resp BP BP 09/05/20 07:45 97.9 F 80 113 H 16 97/66 09/05/20 02:47 97.7 F 110 H 107/67 09/04/20 20:00 18 09/04/20 18:32 113/58 09/04/20 16:43 98.7 F 105 H 18 87/52 09/04/20 15:58 98.6 F 110 H 16 102/55 09/04/20 14:48 110 H 18 129/89 09/04/20 11:56 97.7 F 78 16 126/110 Pulse Ox 09/05/20 07:45 94 L 09/05/20 02:47 100 09/04/20 20:00 09/04/20 18:32 09/04/20 16:43 97 09/04/20 15:58 98 09/04/20 14:48 98 09/04/20 11:56 97 Intake and Output 09/04/20 09/05/20 09/05/20 22:59 06:59 14:59 Other: # Voids 0 2 # Bowel Movements 0 Weight 95.254 kg PHYSICAL EXAM: VITAL SIGNS: As above GENERAL: Sitting up in bed, no acute distress HEENT: Conjunctivae normal. eyes normal. Oral mucosa moist NECK: No JVD. No thyroid enlargement. No LNs CARDIOVASCULAR: S1, S2,irregular. No murmur RESPIRATION: Breath sounds diminished in the bases. No rhonchi or crackles. No bronchial breathing. ABDOMEN: Soft, nontender . No guarding. no masses palpable. No ascites, No hepatosplenomegaly.Bowel sounds heard. LEGS: No edema. no swelling PSYCHIATRY: Alert and oriented X3, mood and affect normal. NERVOUS SYSTEM: Cranial N 2-12 grossly normal. Moves all 4 limbs. Diffuse weakness, No focal deficits. Strength and sensation grossly intact.. Skin: Warm and dry, no rash Lymphatic system. No LN neck axilla. Results CBC & Chem 7: 09/05/20 06:10 09/05/20 06:10 Labs: Abnormal Lab Results - Last 24 Hours (Table) 09/04/20 09/04/20 09/04/20 Range/Units 12:44 12:44 13:10 WBC 12.6 H (3.8-10.6) k/uL RBC 5.41 H (3.80-5.40) m/uL Hgb 17.6 H (11.4-16.0) gm/dL Hct 51.3 H (34.0-46.0) % Neutrophils # 9.1 H (1.3-7.7) k/uL PT 25.1 H (9.0-12.0) sec INR 2.6 H (<1.2) APTT 36.1 H (22.0-30.0) sec Sodium 134 L (137-145) mmol/L BUN 34 H (7-17) mg/dL Creatinine 1.05 H (0.52-1.04) mg/dL Glucose 156 H (74-99) mg/dL Calcium 13.1 H* (8.4-10.2) mg/dL Magnesium 1.5 L (1.6-2.3) mg/dL AST 50 H (14-36) U/L Urine Appearance (Clear) Urine Nitrite (Negative) Ur Leukocyte Esterase (Negative) Amorphous Sediment (None) /hpf Urine Bacteria (None) /hpf Urine Mucus (None) /hpf 09/04/20 Range/Units 13:42 WBC (3.8-10.6) k/uL RBC (3.80-5.40) m/uL Hgb (11.4-16.0) gm/dL Hct (34.0-46.0) % Neutrophils # (1.3-7.7) k/uL PT (9.0-12.0) sec INR (<1.2) APTT (22.0-30.0) sec Sodium (137-145) mmol/L BUN (7-17) mg/dL Creatinine (0.52-1.04) mg/dL Glucose (74-99) mg/dL Calcium (8.4-10.2) mg/dL Magnesium (1.6-2.3) mg/dL AST (14-36) U/L Urine Appearance Cloudy H (Clear) Urine Nitrite Positive H (Negative) Ur Leukocyte Esterase Small H (Negative) Amorphous Sediment Rare H (None) /hpf Urine Bacteria Occasional H (None) /hpf Urine Mucus Rare H (None) /hpf Microbiology - Last 24 Hours (Table) 09/04/20 13:39 Urine Culture - Preliminary Urine,Voided Thrombosis Risk Factor Assmnt - Choose All That Apply Any of the Below Risk Factors Present?: Yes Each Factor Represents 1 point: Obesity (BMI >25), Varicose veins Other Risk Factors: Yes Each Risk Factor Represents 2 Points: Patient confined to bed Each Risk Factor Represents 3 Points: Age 75 years or older Thrombosis Risk Factor Assessment Total Risk Factor Score: 7 Thrombosis Risk Factor Assessment Level: High Risk Assessment and Plan Assessment: Worsening generalized weakness secondary to Possible early sepsis with acute UTI, urine culture pending. Leukocytosis, secondary to the above Dehydration Acute renal failure secondary to the above Acute metabolic encephalopathy, multifactorial, secondary to all the above, improving Hypomagnesemia Chronic atrial fibrillation Hypertension Hyperlipidemia Fibromyalgia Osteoarthritis Hypothyroidism Anxiety Depression Hypercalcemia, possibly hemolyzed, nearly within normal limits overnight with IV fluid hydration. Plan: Continue on current medication regime ,monitoring and symptomatic treatment. Maintain gentle IV fluid hydration, IV antibiotics. Magnesium replacement protocol ordered. Daily PT/INR with Coumadin dosing as per pharmacy. Close monitoring of electrolytes, renal function with repeat labs ordered for a.m. per physical therapy, patient would benefit from a wheelchair at discharge secondary to rapid/functional decline. PT/OT. Patient lives with daughter. The impression and plan of care has been dictated as directed. : I performed a history and examination of this patient, discussed the same with the dictator. I agree with the dictator's note ,documented as a scribe. Any additional findings or plans will be noted.
[2020-09-05] MEDS ORDERED: Phosphorus Replacement Protoco 1 EACH MISC MISCELLANE PRN ×2 (15:59→16:01)
[2020-09-05] MEDS ORDERED: SODIUM PHOSPHATE 10 MMOL in SODIUM CHLORIDE 0.9% 250 ML IVPB ONE (17:00)
[2020-09-05] MEDS: MAGNESIUM SULFATE-D5W PMX 1 GM in DEXTROSE/WATER 1 100ML.BAG IVPB SCH ×2 (17:09→19:06)
[2020-09-05] MEDS ORDERED: WARFARIN 2.5 MG TAB PO SCH (18:00)
[2020-09-05] MEDS: DULoxetine HCL 60 MG CAPSULE.DR PO SCH (19:07)
[2020-09-05] MEDS: LATANOPROST 0.005% OPHTH DROPS 2.5 ML BTL BOTH EYES SCH (19:07)
[2020-09-05] MEDS: hydrALAZINE HCL 25 MG TAB PO SCH (19:07)
[2020-09-05] MEDS: ATORVASTATIN 40 MG TAB PO SCH (19:08)
[2020-09-06] MEDS: LEVOTHYROXINE 100 MCG TAB PO SCH (06:10)
[2020-09-06] MEDS: SODIUM CHLORIDE 0.9% 1,000 ML IV SCH (06:12)
[2020-09-06 06:57] LABS: INR 2.4 (<1.2); Prothrombin Time 23.6 sec (9.0-12.0)
[2020-09-06 06:59] LABS: Basophils # (A) 0.1 k/uL (0-0.2); Basophils % (A) 0 %; Eosinophils # (A) 0.2 k/uL (0-0.7); Eosinophils % (A) 2 %; HCT 43.1 % (34.0-46.0); Lymphocytes % (A) 29 %; MCH 31.2 pg (25.0-35.0); MCHC 32.5 g/dL (31.0-37.0); Mean Platelet Volume 9.8; Monocytes # (A) 0.8 k/uL (0-1.0); Monocytes % (A) 8 %; Neutrophils % (A) 59 %; Platelet Count 184 k/uL (150-450); RBC 4.49 m/uL (3.80-5.40); RDW 12.8 % (11.5-15.5); WBC 10.1 k/uL (3.8-10.6)
[2020-09-06 07:14] LABS: African American GFR (CKD) 85 (>60 ml/min/1.73 sqM); Anion Gap 3 mmol/L; Blood Urea Nitrogen 19 mg/dL (7-17); Calcium 10.8 mg/dL (8.4-10.2); Carbon Dioxide 27 mmol/L (22-30); Chloride 107 mmol/L (98-107); Glucose 133 mg/dL (74-99); Non-African American GFR(CKD) 74 (>60 ml/min/1.73 sqM); Sodium 137 mmol/L (137-145)
[2020-09-06 07:15] LABS: Magnesium 1.8 mg/dL (1.6-2.3); Potassium 4.2 mmol/L (3.5-5.1)
[2020-09-06] MEDS: traMADol-ACETAMINOP 37.5-325MG 1 EACH TAB PO SCH ×2 (08:07→20:01)
[2020-09-06] MEDS: CALCIUM CARB-VIT D 500 MG-5 MCG TAB PO SCH (10:07)
[2020-09-06] MEDS: DORZOLAMIDE HCL 2% DROPS 10 ML BTL BOTH EYES SCH ×2 (10:07→20:00)
[2020-09-06] MEDS: lisinopriL 10 MG TAB PO SCH (10:08)
[2020-09-06] MEDS: TRIAMTERENE-HCTZ 37.5-25MG 1 EACH TAB PO SCH (10:08)
--- NOTE | 2020-09-06 11:43 | P.PN ---
Subjective Progress Note Date: 09/06/20 This is an 85-year-old female with past medical history of atrial fibrillation, fibromyalgia, hyperlipidemia, hypertension, osteoarthritis, hypothyroidism, glaucoma, nephritis, anxiety, depression, skin cancer and multiple other medical issues, presented to the ER with complaints of increasing weakness over the last couple of days. Reports difficulty ambulating with walker, reports increased difficulty with stairs, denies falls, mild confusion. Denies chest pain, palpitations, shortness of breath. Denies abdominal pain, no nausea vomiting or diarrhea. Denies lightheadedness, dizziness or focal deficits. Coronavirus not detected. UA reported occasional bacteria and WBCs, positive for nitrates. Urine culture pending. Afebrile, elevated WBC on admission, now WNL. hemoglobin 17.6, down to 14.1. INR 2.5. Sodium 134, potassium 4.5, BUN 34, creatinine 1.05, calcium elevated at 13.1-possibly hemolyzed, magnesium 1.5, T bili and LFTs within normal limits with the exception of mild elevation of AST, 50. Systolic blood pressure in the high 80s on admission with mild tachycardia. Received IV fluids, antibiotics of Rocephin initiated .This morning, hematology unremarkable, INR 2.5, creatinine down to 1, calcium almost within normal limits, down to 10.9. 09/06/20 Yesterday received potassium, magnesium and phosphorus supplements. feels much better today. Continues on gentle IV fluid hydration, Rocephin. Urine cultures reporting gram-negative bacilli. Afebrile, normal WBC. Renal f unction continues to improve with creatinine down to 0.75. Anticoagulated on Coumadin with INR 2.4. Mild tachycardia with heart rate in the low 100s. Maintaining O2 sats in the high 90s on room air. Staff reports patient incontinent of urine. Objective - Vital Signs Vital signs: Vital Signs Temp 98.2 F 09/06/20 07:05 Pulse 103 H 09/06/20 07:05 Resp 18 09/06/20 07:05 BP 120/79 09/06/20 07:05 Pulse Ox 96 09/06/20 07:05 Intake & Output 09/05/20 09/06/20 09/06/20 18:59 06:59 18:59 Intake Total 360 Balance 360 Intake: Oral 360 Other: # Voids 2 2 - Exam PHYSICAL EXAM: VITAL SIGNS: As above GENERAL: Alert and oriented 3, Sitting up in bed, no acute distress HEENT: Conjunctivae normal. eyes normal. Oral mucosa moist NECK: No JVD. No thyroid enlargement. CARDIOVASCULAR: S1, S2,irregular. No murmur RESPIRATION: Breath sounds diminished in the bases. No rhonchi or crackles. No wheezing. ABDOMEN: Soft, nontender . No guarding. no masses palpable. Bowel sounds heard. LEGS: No edema. no swelling NERVOUS SYSTEM: Cranial N 2-12 grossly normal. Moves all 4 limbs. Diffuse weakness, No focal deficits. Strength and sensation grossly intact.. Skin: Warm and dry, no rash - Labs CBC & Chem 7: 09/06/20 06:29 09/06/20 06:29 Labs: Abnormal Lab Results - Last 24 Hours (Table) 09/05/20 09/06/20 09/06/20 Range/Units 06:10 06:29 06:29 PT 23.6 H (9.0-12.0) sec INR 2.4 H (<1.2) BUN 19 H (7-17) mg/dL Est GFR (CKD-EPI)AfAm 59.9 L (60.0-200.0) Est GFR (CKD-EPI)NonAf 51.7 L (60.0-200.0) BUN/Creatinine Ratio 25.00 H (12.00-20.00) Ratio Glucose 124 H 133 H (70-110) mg/dL Calcium 10.9 H 10.8 H (8.7-10.3) mg/dL Phosphorus 2.1 L (2.4-5.1) mg/dL Total Protein 5.7 L (6.2-8.2) g/dL Albumin 3.60 L (3.80-4.90) g/dL Microbiology - Last 24 Hours (Table) 09/04/20 13:39 Urine Culture - Preliminary Urine,Voided Gram Neg Bacilli Assessment and Plan Assessment: Worsening generalized weakness secondary to Possible early sepsis with acute UTI, preliminary urine culture reporting gram-negative bacilli Leukocytosis, secondary to the above Dehydration Acute renal failure secondary to the above Acute metabolic encephalopathy, multifactorial, secondary to all the above, improving Hypomagnesemia Chronic atrial fibrillation Hypertension Hyperlipidemia Fibromyalgia Osteoarthritis Gait dysfunction Hypothyroidism Anxiety Depression Hypercalcemia, possibly hemolyzed, nearly within normal limits overnight with IV fluid hydration. Morbid obesity, BMI 39.7 Plan: Continue on current medication regime ,monitoring and symptomatic treatment. Continue with gentle IV fluid hydration, IV antibiotics, electrolyte replacements. Anticoagulated on Coumadin per pharmacy dosing. PT/OT-increase ambulation as tolerated .Regarding generalized weakness, gait dysfunction , on top of multiple comorbidities as listed in assessment ,patient will require a wheelchair at discharge secondary to complete ADLs she is unable to complete with a walker. Please refer to PT notes. Patient lives with her daughter will be able to help her propel onto wheelchair. Discharge planning in progress for tomorrow. The impression and plan of care has been dictated as directed. : I performed a history and examination of this patient, discussed the same with the dictator. I agree with the dictator's note ,documented as a scribe. Any additional findings or plans will be noted.
[2020-09-06] MEDS: WARFARIN 5 MG TAB PO SCH (18:51)
[2020-09-06] MEDS: ATORVASTATIN 40 MG TAB PO SCH (20:00)
[2020-09-06] MEDS: hydrALAZINE HCL 25 MG TAB PO SCH (20:00)
[2020-09-06] MEDS: LATANOPROST 0.005% OPHTH DROPS 2.5 ML BTL BOTH EYES SCH (20:00)
[2020-09-06] MEDS: DULoxetine HCL 60 MG CAPSULE.DR PO SCH (20:00)
[2020-09-07] MEDS: LEVOTHYROXINE 100 MCG TAB PO SCH (05:48)
[2020-09-07] MEDS: SODIUM CHLORIDE 0.9% 1,000 ML IV SCH ×2 (05:48→07:34)
[2020-09-07 06:52] LABS: Basophils # (A) 0.1 k/uL (0-0.2); Basophils % (A) 1 %; Eosinophils # (A) 0.2 k/uL (0-0.7); Eosinophils % (A) 2 %; HCT 40.4 % (34.0-46.0); HGB 13.7 gm/dL (11.4-16.0); Lymphocytes # (A) 2.6 k/uL (1.0-4.8); Lymphocytes % (A) 33 %; MCH 31.9 pg (25.0-35.0); MCHC 33.8 g/dL (31.0-37.0); MCV 94.3 fL (80.0-100.0); Mean Platelet Volume 9.3; Monocytes # (A) 0.7 k/uL (0-1.0); Monocytes % (A) 9 %; Neutrophils # (A) 4.3 k/uL (1.3-7.7); Neutrophils % (A) 54 %; Platelet Count 182 k/uL (150-450); RBC 4.28 m/uL (3.80-5.40); RDW 12.2 % (11.5-15.5)
[2020-09-07] MEDS: traMADol-ACETAMINOP 37.5-325MG 1 EACH TAB PO SCH (07:32)
[2020-09-07] MEDS: lisinopriL 10 MG TAB PO SCH (07:33)
[2020-09-07] MEDS: DORZOLAMIDE HCL 2% DROPS 10 ML BTL BOTH EYES SCH (07:33)
[2020-09-07] MEDS: CALCIUM CARB-VIT D 500 MG-5 MCG TAB PO SCH (07:33)
[2020-09-07 07:42] VITALS: BP 101/73; PULSE 91; RESP 16; TEMP 97.7
--- NOTE | 2020-09-07 08:45 | P.DS ---
Providers Date of admission: 09/04/20 14:49 Expected date of discharge: 09/07/20 Attending physician: Julio Zambrano Primary care physician: Julio Zambrano Hospital Course: Worsening generalized weakness secondary to early sepsis with acute Klebsiella pneumoniae UTI, Leukocytosis, secondary to the above,resolved Dehydration, resolved Acute renal failure secondary to the above Acute metabolic encephalopathy, multifactorial, secondary to all the above, improving Hypomagnesemia Chronic atrial fibrillation Hypertension Hyperlipidemia Fibromyalgia Osteoarthritis Gait dysfunction Hypothyroidism Anxiety Depression Hypercalcemia, possibly hemolyzed, nearly within normal limits overnight with IV fluid hydration. Morbid obesity, BMI 39.7 Hospital course:This is an 85-year-old female with past medical history of atrial fibrillation, fibromyalgia, hyperlipidemia, hypertension, osteoarthritis, hypothyroidism, glaucoma, nephritis, anxiety, depression, skin cancer and multiple other medical issues, presented to the ER with complaints of increasing weakness over the last couple of days. Reports difficulty ambulating with walker, reports increased difficulty with stairs, denies falls, mild confusion. Denies chest pain, palpitations, shortness of breath. Denies abdominal pain, no nausea vomiting or diarrhea. Denies lightheadedness, dizziness or focal deficits. Coronavirus not detected. UA reported occasional bacteria and WBCs, positive for nitrates. Urine culture pending. Afebrile, elevated WBC on admission, now WNL. hemoglobin 17.6, down to 14.1. INR 2.5. Sodium 134, potassium 4.5, BUN 34, creatinine 1.05, calcium elevated at 13.1-possibly hemolyzed, magnesium 1.5, T bili and LFTs within normal limits with the exception of mild elevation of AST, 50. Systolic blood pressure in the high 80s on admission with mild tachycardia. Received IV fluids, antibiotics of Rocephin initiated .This morning, hematology unremarkable, INR 2.5, creatinine down to 1, calcium almost within normal limits, down to 10.9. 09/06/20 Yesterday received potassium, magnesium and phosphorus supplements. feels much better today. Continues on gentle IV fluid hydration, Rocephin. Urine cultures reporting gram-negative bacilli. Afebrile, normal WBC. Renal function continues to improve with creatinine down to 0.75. Anticoagulated on Coumadin with INR 2.4. Mild tachycardia with heart rate in the low 100s. Maintaining O2 sats in the high 90s on room air. Staff reports patient incontinent of urine. Urine culutres reporting Klebsiella pneumoniae. Maintained on Rocephin IV . Afebrile, normal WBC. VSS. Significant clinical improvement. Patient will be discharged home with daughter today in a stable condition with guarded prognosis. The impression and plan of care has been dictated as directed. : I performed a history and examination of this patient, discussed the same with the dictator. I agree with the dictator's note ,documented as a scribe. Any additional findings or plans will be noted. Patient Condition at Discharge: Stable Plan - Discharge Summary Discharge Rx Participant: No New Discharge Prescriptions: New Cefuroxime Axetil [Ceftin] 500 mg PO BID 1 Days #10 tab Continue Latanoprost Ophth [Xalatan 0.005%] 1 drops BOTH EYES HS Levothyroxine Sodium [Synthroid] 100 mcg PO DAILY DULoxetine HCL [Cymbalta] 60 mg PO HS hydrALAZINE HCL [Apresoline] 25 mg PO HS Lisinopril [Zestril] 10 mg PO DAILY Atorvastatin [Lipitor] 40 mg PO HS Triamterene/Hydrochlorothiazid [Maxzide 37.5-25] 0.5 tab PO DAILY Cetirizine HCl [Zyrtec] 10 mg PO DAILY PRN PRN Reason: ALLERGIES Calcium Carbonate/Vitamin D3 [Calcium 600-Vit D3 400 Caplet] 1 tab PO DAILY Warfarin [Coumadin] 5 mg PO Q48H Dorzolamide 2% [Trusopt 2%] 1 drops BOTH EYES BID traMADol HCL/ACETAMINOPHEN [Ultracet 37.5-325] 1 tab PO BID Warfarin Sodium 2.5 tab PO Q48H Discharge Medication List Atorvastatin [Lipitor] 40 mg PO HS 03/27/14 [History] DULoxetine HCL [Cymbalta] 60 mg PO HS 03/27/14 [History] Latanoprost Ophth [Xalatan 0.005%] 1 drops BOTH EYES HS 03/27/14 [History] Levothyroxine Sodium [Synthroid] 100 mcg PO DAILY 03/27/14 [History] Lisinopril [Zestril] 10 mg PO DAILY 03/27/14 [History] Triamterene/Hydrochlorothiazid [Maxzide 37.5-25] 0.5 tab PO DAILY 03/27/14 [History] hydrALAZINE HCL [Apresoline] 25 mg PO HS 03/27/14 [History] Calcium Carbonate/Vitamin D3 [Calcium 600-Vit D3 400 Caplet] 1 tab PO DAILY 11/10/16 [History] Cetirizine HCl [Zyrtec] 10 mg PO DAILY PRN 11/10/16 [History] Dorzolamide 2% [Trusopt 2%] 1 drops BOTH EYES BID 11/10/16 [History] Warfarin Sodium 2.5 tab PO Q48H 11/10/16 [History] Warfarin [Coumadin] 5 mg PO Q48H 11/10/16 [History] traMADol HCL/ACETAMINOPHEN [Ultracet 37.5-325] 1 tab PO BID 11/10/16 [History] Cefuroxime Axetil [Ceftin] 500 mg PO BID 1 Days #10 tab 09/07/20 [Rx] Follow up Appointment(s)/Referral(s): Julio Zambrano DO [Primary Care Provider] - 3 Days Ambulatory/Diagnostic Orders: Complete Blood Count w/diff [LAB.AMB] Time Frame: 3 Days, Location: None Nydia ected Prothrombin Time INR [LAB.AMB] Location: None Selected
[2020-09-07 09:33] LABS: INR 2.11 (0.90-1.11); Prothrombin Time 21.6 sec (9.9-11.9)
[2020-09-07 10:10] LABS: African American GFR (CKD) 78.5 (60.0-200.0); Anion Gap 5.3 mmol/L (4.00-12.00); Calcium 10.1 mg/dL (8.7-10.3); Carbon Dioxide 25.7 mmol/L (21.6-31.8); Non-African American GFR(CKD) 67.7 (60.0-200.0); Phosphorus 2.2 mg/dL (2.4-5.1); Potassium 3.9 mmol/L (3.5-5.5)
== END 2020-09-07 11:35 | disposition home or self-care (01) | DRG 871 ==
LOC: EC 11:48 → 4SSUR 14:49
PROVIDERS: ADMIT Family Medicine; ATTEND Family Medicine
DX: A41.59 Other Gram-negative sepsis (principal); G93.41 Metabolic encephalopathy; N39.0 Urinary tract infection, site not specified; I48.20 Chronic atrial fibrillation, unspecified; N17.9 Acute kidney failure, unspecified; E86.0 Dehydration; E66.01 Morbid (severe) obesity due to excess calories; E03.9 Hypothyroidism, unspecified; Z20.822 Contact with and (suspected) exposure to COVID-19; E83.52 Hypercalcemia; Z68.39 Body mass index [BMI] 39.0-39.9, adult; E83.42 Hypomagnesemia; E78.5 Hyperlipidemia, unspecified; M79.7 Fibromyalgia; I10 Essential (primary) hypertension; F41.9 Anxiety disorder, unspecified; F32.9 Major depressive disorder, single episode, unspecified; R32 Unspecified urinary incontinence; I83.90 Asymptomatic varicose veins of unspecified lower extremity; H40.9 Unspecified glaucoma; R26.2 Difficulty in walking, not elsewhere classified; M19.90 Unspecified osteoarthritis, unspecified site; Z96.651 Presence of right artificial knee joint; Z79.01 Long term (current) use of anticoagulants; Z79.890 Hormone replacement therapy; Z79.899 Other long term (current) drug therapy; Z85.828 Personal history of other malignant neoplasm of skin; Z90.49 Acquired absence of other specified parts of digestive tract; Z90.710 Acquired absence of both cervix and uterus; Z90.89 Acquired absence of other organs; Z87.19 Personal history of other diseases of the digestive system; Z87.42 Personal history of other diseases of the female genital tract; Z98.890 Other specified postprocedural states; Z88.5 Allergy status to narcotic agent; Z88.0 Allergy status to penicillin; Z91.048 Other nonmedicinal substance allergy status; Z80.9 Family history of malignant neoplasm, unspecified
CPT/HCPCS: 36415; 71046; 80048; 80053; 81001; 83735; 84100; 85025; 85610; 85730; 87077; 87086; 87186; 87635; 93005; 96361; 96374; 99285

== ENCOUNTER 2020-10-19 10:18 | Inpatient (IN) | payer MEDICARE ==
[2020-10-19] MEDS ORDERED: cefTRIAXone IN SWFI 1,000 MG/10 ML SYRINGE IVP STA (10:36)
[2020-10-19] MEDS ORDERED: SODIUM CHLORIDE 0.9% 500 ML 500 ML IV ONE (10:38)
[2020-10-19 11:01] LABS: Glucose,Whole Blood 136 mg/dL (75-99)
[2020-10-19 11:07] LABS: Amorphous Sediment,Urine Moderate /hpf; Appearance,Urine Cloudy (Clear); Bacteria,Urine Rare /hpf; Bilirubin,Urine Negative (Negative); Blood,Urine Negative (Negative); Color,Urine Light Yellow; Glucose,Urine (UA) Negative (Negative); Hyaline Casts,Urine 1 /lpf (0-2); Ketones,Urine Negative (Negative); Leukocyte Esterase,Urine Trace (Negative); Mucus,Urine Rare /hpf; Nitrite,Urine Negative (Negative); Protein,Urine Negative (Negative); RBC,Urine 3 /hpf (0-5); Specific Gravity,Urine 1.011 (1.001-1.035); Squamous Epithelial Cell,Urine 1 /hpf (0-4); Urobilinogen,Urine <2.0 mg/dL (<2.0); WBC,Urine 4 /hpf (0-5)
[2020-10-19 11:10] LABS: Amphetamine Screen,Urine Not Detected (NotDetected); Barbiturate Screen,Urine Not Detected (NotDetected); Benzodiazepines Screen,Urine Not Detected (NotDetected); Cocaine Screen,Urine Not Detected (NotDetected); Methadone Screen, Urine Not Detected (NotDetected); Opiate Screen,Urine Not Detected (NotDetected); Oxycodone Screen, Urine Not Detected (NotDetected); Phencyclidine Screen,Urine Not Detected (NotDetected); Tricyclic Antidepressant,Urine Not Detected (NotDetected); Urn Cannabinoid Scrn Not Detected (NotDetected)
--- NOTE | 2020-10-19 11:43 | CT ---
EXAMINATION TYPE: CT brain wo con DATE OF EXAM: 10/19/2020 COMPARISON: None HISTORY: Altered Mental Status CT DLP: 1094.4 mGycm Automated exposure control for dose reduction was used. FINDINGS: Moderate generalized degenerative change slightly greater central component. No evidence of hemorrhag e or mass effect. Periventricular low-attenuation suggestive of remote ischemia. Calvarium intact. IMPRESSION: 1. Degenerative and nonspecific white matter changes most typical of remote ischemia. No acute hemorr janis or mass effect. Greater central component can sometimes be associated with normal pressure hydro cephalus correlate clinically.
--- NOTE | 2020-10-19 11:47 | XR ---
EXAMINATION TYPE: XR chest 2V DATE OF EXAM: 10/19/2020 COMPARISON: 09/04/2020 HISTORY: Shortness of breath TECHNIQUE: Frontal and lateral views of the chest are obtained. FINDINGS: Scattered senescent parenchymal changes noted. Hyperinflation compatible with COPD. Persistent patchy perihilar and basilar densities may reflect chronic infiltrate. Correlate clinicall y. Heart size is stable. Mediastinal structures are stable and grossly unremarkable. No evidence for hilar prominence. Degenerative changes dorsal spine. IMPRESSION: 1. Persistent patchy perihilar and basilar densities may reflect chronic infiltrate. Correlate clinic ally.
[2020-10-19 12:01] LABS: Basophils # (A) 0.1 k/uL (0-0.2); Basophils % (A) 0 %; Eosinophils # (A) 0.2 k/uL (0-0.7); Eosinophils % (A) 1 %; HCT 46.6 % (34.0-46.0); HGB 15.5 gm/dL (11.4-16.0); Lymphocytes # (A) 3.2 k/uL (1.0-4.8); Lymphocytes % (A) 23 %; MCH 31.9 pg (25.0-35.0); MCHC 33.4 g/dL (31.0-37.0); MCV 95.6 fL (80.0-100.0); Mean Platelet Volume 11.8; Monocytes # (A) 1.4 k/uL (0-1.0); Monocytes % (A) 10 %; Neutrophils # (A) 8.8 k/uL (1.3-7.7); Neutrophils % (A) 63 %; Platelet Count 206 k/uL (150-450); RBC 4.87 m/uL (3.80-5.40); RDW 12.3 % (11.5-15.5); WBC 13.9 k/uL (3.8-10.6)
[2020-10-19 12:25] LABS: Albumin 3.9 g/dL (3.5-5.0); Potassium 4.2 mmol/L (3.5-5.1); Total Bilirubin 0.9 mg/dL (0.2-1.3); Total Protein 6.9 g/dL (6.3-8.2)
[2020-10-19 12:39] LABS: Prothrombin Time 49.8 sec (9.0-12.0)
[2020-10-19 12:46] LABS: INR 5.2 (<1.2)
--- NOTE | 2020-10-19 12:48 | ED ---
Altered Mental Status HPI - General Chief Complaint: Altered Mental Status Stated Complaint: altered mental status Time Seen by Provider: 10/19/20 10:28 Source: EMS Mode of arrival: EMS - History of Present Illness Initial Comments: 85-year-old female with hx of HLD, HTN, Afib, thyroid disorder, fibromyalgia presents today for chief complaint of altered mental status. Patient was recently admitted for a urinary tract infection August. She was on ciprofloxacin at that time. Family states that she was at [facility] after she came home from the hospitalization was walking. They state that over the past week patient has regressed they state that she appears weak all over sometimes she leans in her chair to the left. They didn't know any facial droop speech changes and was stated that the patient family feels she is out of it. Denies fevers, chest pain, dyspnea, neck pain, nausea. Family states she coughs up the food she attempts to eat. No known history of falls/trauma. Patient is coumadin Patient has no additional complaints. Upon arrival patient appears well no acute distress. AAOx2-personal place does not know time. - Related Data Home Medications Medication Instructions Recorded Confirmed Atorvastatin [Lipitor] 40 mg PO HS 03/27/14 10/19/20 DULoxetine HCL [Cymbalta] 60 mg PO HS 03/27/14 10/19/20 Latanoprost Ophth [Xalatan 0.005%] 1 drops BOTH EYES HS 03/27/14 10/19/20 Levothyroxine Sodium [Synthroid] 100 mcg PO DAILY 03/27/14 10/19/20 Lisinopril [Zestril] 10 mg PO DAILY 03/27/14 10/19/20 Triamterene/Hydrochlorothiazid 0.5 tab PO DAILY 03/27/14 10/19/20 [Maxzide 37.5-25] hydrALAZINE HCL [Apresoline] 25 mg PO HS 03/27/14 10/19/20 Calcium Carbonate/Vitamin D3 1 tab PO DAILY 11/10/16 10/19/20 [Calcium 600-Vit D3 400 Caplet] Cetirizine HCl [Zyrtec] 10 mg PO DAILY PRN 11/10/16 10/19/20 Dorzolamide 2% [Trusopt 2%] 1 drops BOTH EYES BID 11/10/16 10/19/20 Warfarin Sodium 2.5 tab PO Q48H 11/10/16 10/19/20 Warfarin [Coumadin] 5 mg PO Q48H 11/10/16 10/19/20 traMADol HCL/ACETAMINOPHEN 1 tab PO BID 11/10/16 10/19/20 [Ultracet 37.5-325] Ciprofloxacin HCl [Cipro] 250 mg PO BID 10/19/20 10/19/20 Allergies Allergy/AdvReac Type Severity Reaction Status Date / Time hydroxyzine HCl Allergy Rash/Hives Verified 10/19/20 11:01 [From Vistaril] hydroxyzine pamoate Allergy Rash/Hives Verified 10/19/20 11:01 [From Vistaril] Penicillins Allergy Rash/Hives Verified 10/19/20 11:01 adhesive tape AdvReac IV BANDAGE Verified 10/19/20 11:01 CAUSED SKIN REDNESS codeine AdvReac headache Verified 10/19/20 11:01 Review of Systems ROS Statement: Those systems with pertinent positive or pertinent negative responses have been documented in the HPI. ROS Other: All systems not noted in ROS Statement are negative. 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, hx skin cancer History of Any Multi-Drug Resistant Organisms: None Reported Past Surgical History: Cholecystectomy, Hysterectomy, Joint Replacement, Tonsillectomy Additional Past Surgical History / Comment(s): rt knee replacement 2012 Past Anesthesia/Blood Transfusion Reactions: Motion Sickness Past Psychological History: Anxiety, Depression Smoking Status: Never smoker Past Alcohol Use History: None Reported Past Drug Use History: None Reported - Past Family History Mother Family Medical History: Cancer Son(s) Family Medical History: Cancer General Exam - General Exam Comments Initial Comments: General: The patient is awake and alert, in no distress Eye: +1 mm pupils are equal, round and reactive to light, extra-ocular movements are intact. No nystagmus. There is normal conjunctiva bilaterally. No signs of icterus. Ears, nose, mouth and throat: There are moist mucous membranes and no oral lesions. Neck: The neck is supple, there is no tenderness or JVD. Cardiovascular: There is a regular rate and rhythm. No murmur, rub or gallop is appreciated. Respiratory: Lungs are clear to auscultation, respirations are non-labored, breath sounds are equal. No wheezes, stridor, rales, or rhonchi. Gastrointestinal: Soft, non-distended, non-tender abdomen without masses or organomegaly noted. There is no rebound or guarding present. Musculoskeletal: Normal ROM, no tenderness. Strength 5/5. Sensation intact. Radial and DP pulses equal bilaterally 2+. Neurological: A&O x 2. CN II-XII intact, There are no obvious motor or sensory deficits. Coordination appears grossly intact. Speech is drawn out but not slurred Skin: Skin is warm and dry and no rashes or lesions are noted. Psychiatric: Cooperative, slow to respond Course Vital Signs 10/19/20 10/19/20 10/19/20 10:19 11:01 12:00 Temperature 98.8 F Pulse Rate 88 90 96 Respiratory 18 19 18 Rate Blood Pressure 98/64 105/67 110/62 O2 Sat by Pulse 96 96 96 Oximetry 10/19/20 10/19/20 10/19/20 12:28 13:12 14:09 Temperature Pulse Rate 93 98 95 Respiratory 16 18 19 Rate Blood Pressure 110/62 93/66 90/54 O2 Sat by Pulse 98 94 L Oximetry Medical Decision Making - Medical Decision Making 85-year-old presenting for altered mental status. Patient has uremia with BRIDGETTE, hypercalcemia, will be hydrated/admitted for monitoring. Patient has no focal neurological deficits. Abdomen soft appears nontotender. No nuchal rigidity. Patient has no additional complaints. CT Brain no focal lesions, cannot r/o normal pressure hydrocephalus. Patient is agreeable to admission. Dr. Rodriguez is agreeable to care plan and admission. - Lab Data Result diagrams: 10/19/20 11:32 10/19/20 11:32 Lab Results 10/19/20 10/19/20 10/19/20 Range/Units 10:42 11:00 11:32 WBC 13.9 H (3.8-10.6) k/uL RBC 4.87 (3.80-5.40) m/uL Hgb 15.5 (11.4-16.0) gm/dL Hct 46.6 H (34.0-46.0) % MCV 95.6 (80.0-100.0) fL MCH 31.9 (25.0-35.0) pg MCHC 33.4 (31.0-37.0) g/dL RDW 12.3 (11.5-15.5) % Plt Count 206 (150-450) k/uL MPV 11.8 Neutrophils % 63 % Lymphocytes % 23 % Monocytes % 10 % Eosinophils % 1 % Basophils % 0 % Neutrophils # 8.8 H (1.3-7.7) k/uL Lymphocytes # 3.2 (1.0-4.8) k/uL Monocytes # 1.4 H (0-1.0) k/uL Eosinophils # 0.2 (0-0.7) k/uL Basophils # 0.1 (0-0.2) k/uL PT (9.0-12.0) sec INR (<1.2) Sodium (137-145) mmol/L Potassium (3.5-5.1) mmol/L Chloride (98-107) mmol/L Carbon Dioxide (22-30) mmol/L Anion Gap mmol/L BUN (7-17) mg/dL Creatinine (0.52-1.04) mg/dL Est GFR (CKD-EPI)AfAm (>60 ml/min/1.73 sqM) Est GFR (CKD-EPI)NonAf (>60 ml/min/1.73 sqM) Glucose (74-99) mg/dL POC Glucose (mg/dL) 136 H (75-99) mg/dL POC Glu Offline Cutter Ulisses Chavez Plasma Lactic Acid Carlos (0.7-2.0) mmol/L Calcium (8.4-10.2) mg/dL Total Bilirubin (0.2-1.3) mg/dL AST (14-36) U/L ALT (4-34) U/L Alkaline Phosphatase (38-126) U/L Troponin I (0.000-0.034) ng/mL Total Protein (6.3-8.2) g/dL Albumin (3.5-5.0) g/dL Urine Color Light Yellow Urine Appearance Cloudy H (Clear) Urine pH 6.0 (5.0-8.0) Ur Specific [place] 1.011 (1.001-1.035) Urine Protein Negative (Negative) Urine Glucose (UA) Negative (Negative) Urine Ketones Negative (Negative) Urine Blood Negative (Negative) Urine Nitrite Negative (Negative) Urine Bilirubin Negative (Negative) Urine Urobilinogen <2.0 (<2.0) mg/dL Ur Leukocyte Esterase Trace H (Negative) Urine RBC 3 (0-5) /hpf Urine WBC 4 (0-5) /hpf Ur Squamous Epith Cells 1 (0-4) /hpf Amorphous Sediment Moderate H (None) /hpf Urine Bacteria Rare H (None) /hpf Hyaline Casts 1 (0-2) /lpf Urine Mucus Rare H (None) /hpf Urine Opiates Screen Not Detected (NotDetected) Ur Oxycodone Screen Not Detected (NotDetected) Urine Methadone Screen Not Detected (NotDetected) Ur Propoxyphene Screen Not Detected (NotDetected) Ur Barbiturates Screen Not Detected (NotDetected) U Tricyclic Antidepress Not Detected (NotDetected) Ur Phencyclidine Scrn Not Detected (NotDetected) Ur Amphetamines Screen Not Detected (NotDetected) U Methamphetamines Scrn Not Detected (NotDetected) U Benzodiazepines Scrn Not Detected (NotDetected) Urine Cocaine Screen Not Detected (NotDetected) U Marijuana (THC) Screen Not Detected (NotDetected) Coronavirus (PCR) (Not Detectd) 10/19/20 10/19/20 10/19/20 Range/Units 11:32 11:42 12:10 WBC (3.8-10.6) k/uL RBC (3.80-5.40) m/uL Hgb (11.4-16.0) gm/dL Hct (34.0-46.0) % MCV (80.0-100.0) fL MCH (25.0-35.0) pg MCHC (31.0-37.0) g/dL RDW (11.5-15.5) % Plt Count (150-450) k/uL MPV Neutrophils % % Lymphocytes % % Monocytes % % Eosinophils % % Basophils % % Neutrophils # (1.3-7.7) k/uL Lymphocytes # (1.0-4.8) k/uL Monocytes # (0-1.0) k/uL Eosinophils # (0-0.7) k/uL Basophils # (0-0.2) k/uL PT 49.8 H (9.0-12.0) sec INR 5.2 H* (<1.2) Sodium 133 L (137-145) mmol/L Potassium 4.2 (3.5-5.1) mmol/L Chloride 97 L (98-107) mmol/L Carbon Dioxide 26 (22-30) mmol/L Anion Gap 10 mmol/L BUN 72 H (7-17) mg/dL Creatinine 2.22 H (0.52-1.04) mg/dL Est GFR (CKD-EPI)AfAm 23 (>60 ml/min/1.73 sqM) Est GFR (CKD-EPI)NonAf 20 (>60 ml/min/1.73 sqM) Glucose 142 H (74-99) mg/dL POC Glucose (mg/dL) (75-99) mg/dL POC Glu Offline Cutter ID Plasma Lactic Acid Carlos (0.7-2.0) mmol/L Calcium 14.4 H* (8.4-10.2) mg/dL Total Bilirubin 0.9 (0.2-1.3) mg/dL AST 50 H (14-36) U/L ALT 59 H (4-34) U/L Alkaline Phosphatase 86 (38-126) U/L Troponin I <0.012 (0.000-0.034) ng/mL Total Protein 6.9 (6.3-8.2) g/dL Albumin 3.9 (3.5-5.0) g/dL Urine Color Urine Appearance (Clear) Urine pH (5.0-8.0) Ur Specific [place] (1.001-1.035) Urine Protein (Negative) Urine Glucose (UA) (Negative) Urine Ketones (Negative) Urine Blood (Negative) Urine Nitrite (Negative) Urine Bilirubin (Negative) Urine Urobilinogen (<2.0) mg/dL Ur Leukocyte Esterase (Negative) Urine RBC (0-5) /hpf Urine WBC (0-5) /hpf Ur Squamous Epith Cells (0-4) /hpf Amorphous Sediment (None) /hpf Urine Bacteria (None) /hpf Hyaline Casts (0-2) /lpf Urine Mucus (None) /hpf Urine Opiates Screen (NotDetected) Ur Oxycodone Screen (NotDetected) Urine Methadone Screen (NotDetected) Ur Propoxyphene Screen (NotDetected) Ur Barbiturates Screen (NotDetected) U Tricyclic Antidepress (NotDetected) Ur Phencyclidine Scrn (NotDetected) Ur Amphetamines Screen (NotDetected) U Methamphetamines Scrn (NotDetected) U Benzodiazepines Scrn (NotDetected) Urine Cocaine Screen (NotDetected) U Marijuana (THC) Screen (NotDetected) Coronavirus (PCR) (Not Detectd) 10/19/20 10/19/20 Range/Units 12:14 12:28 WBC (3.8-10.6) k/uL RBC (3.80-5.40) m/uL Hgb (11.4-16.0) gm/dL Hct (34.0-46.0) % MCV (80.0-100.0) fL MCH (25.0-35.0) pg MCHC (31.0-37.0) g/dL RDW (11.5-15.5) % Plt Count (150-450) k/uL MPV Neutrophils % % Lymphocytes % % Monocytes % % Eosinophils % % Basophils % % Neutrophils # (1.3-7.7) k/uL Lymphocytes # (1.0-4.8) k/uL Monocytes # (0-1.0) k/uL Eosinophils # (0-0.7) k/uL Basophils # (0-0.2) k/uL PT (9.0-12.0) sec INR (<1.2) Sodium (137-145) mmol/L Potassium (3.5-5.1) mmol/L Chloride (98-107) mmol/L Carbon Dioxide (22-30) mmol/L Anion Gap mmol/L BUN (7-17) mg/dL Creatinine (0.52-1.04) mg/dL Est GFR (CKD-EPI)AfAm (>60 ml/min/1.73 sqM) Est GFR (CKD-EPI)NonAf (>60 ml/min/1.73 sqM) Glucose (74-99) mg/dL POC Glucose (mg/dL) (75-99) mg/dL POC Glu Offline Cutter ID Plasma Lactic Acid Carlos 1.5 (0.7-2.0) mmol/L Calcium (8.4-10.2) mg/dL Total Bilirubin (0.2-1.3) mg/dL AST (14-36) U/L ALT (4-34) U/L Alkaline Phosphatase (38-126) U/L Troponin I (0.000-0.034) ng/mL Total Protein (6.3-8.2) g/dL Albumin (3.5-5.0) g/dL Urine Color Urine Appearance (Clear) Urine pH (5.0-8.0) Ur Specific [place] (1.001-1.035) Urine Protein (Negative) Urine Glucose (UA) (Negative) Urine Ketones (Negative) Urine Blood (Negative) Urine Nitrite (Negative) Urine Bilirubin (Negative) Urine Urobilinogen (<2.0) mg/dL Ur Leukocyte Esterase (Negative) Urine RBC (0-5) /hpf Urine WBC (0-5) /hpf Ur Squamous Epith Cells (0-4) /hpf Amorphous Sediment (None) /hpf Urine Bacteria (None) /hpf Hyaline Casts (0-2) /lpf Urine Mucus (None) /hpf Urine Opiates Screen (NotDetected) Ur Oxycodone Screen (NotDetected) Urine Methadone Screen (NotDetected) Ur Propoxyphene Screen (NotDetected) Ur Barbiturates Screen (NotDetected) U Tricyclic Antidepress (NotDetected) Ur Phencyclidine Scrn (NotDetected) Ur Amphetamines Screen (NotDetected) U Methamphetamines Scrn (NotDetected) U Benzodiazepines Scrn (NotDetected) Urine Cocaine Screen (NotDetected) U Marijuana (THC) Screen (NotDetected) Coronavirus (PCR) Not Detected (Not Detectd) Disposition Clinical Impression: Uremia, AMS (altered mental status), BRIDGETTE (acute kidney injury), Hypercalcemia Disposition: ADMITTED IP TO THIS [facility] Condition: Stable Is patient prescribed a controlled substance at d/c from ED?: No Time of Disposition: 13:07 Decision to Admit Reason: Admit from EC Decision Date: 10/19/20 Decision Time: 13:07
[2020-10-19 12:53] LABS: Calcium 14.4 mg/dL (8.4-10.2)
[2020-10-19] MEDS: SODIUM CHLORIDE 0.9% 1,000 ML IV SCH ×2 (12:58→23:55)
[2020-10-19] MEDS ORDERED: NALOXONE 0.4 MG/ML 1 ML VIAL IV PRN (13:49)
[2020-10-19] MEDS ORDERED: traMADol 50 MG TAB PO STA (14:48)
[2020-10-20] MEDS: LEVOTHYROXINE 100 MCG TAB PO SCH (06:03)
[2020-10-20] MEDS: DORZOLAMIDE HCL 2% DROPS 10 ML BTL BOTH EYES SCH ×2 (08:52→20:34)
[2020-10-20 09:40] LABS: African American GFR (CKD) 44 (>60 ml/min/1.73 sqM); Anion Gap 7 mmol/L; Blood Urea Nitrogen 50 mg/dL (7-17); Carbon Dioxide 22 mmol/L (22-30); Chloride 105 mmol/L (98-107); Glucose 138 mg/dL (74-99); Non-African American GFR(CKD) 38 (>60 ml/min/1.73 sqM); Potassium 4.3 mmol/L (3.5-5.1); Prothrombin Time 50.2 sec (9.0-12.0); Sodium 134 mmol/L (137-145)
[2020-10-20 09:41] LABS: Basophils % (A) 0 %; Eosinophils # (A) 0.2 k/uL (0-0.7); Eosinophils % (A) 1 %; HCT 43.8 % (34.0-46.0); HGB 14.9 gm/dL (11.4-16.0); Lymphocytes # (A) 2.2 k/uL (1.0-4.8); Lymphocytes % (A) 21 %; MCH 32.4 pg (25.0-35.0); MCV 95.2 fL (80.0-100.0); Mean Platelet Volume 11.4; Monocytes % (A) 9 %; Neutrophils # (A) 6.9 k/uL (1.3-7.7); Neutrophils % (A) 66 %; Platelet Count 171 k/uL (150-450); RDW 12.3 % (11.5-15.5); WBC 10.5 k/uL (3.8-10.6)
[2020-10-20 09:54] LABS: INR 5.2 (<1.2)
[2020-10-20 09:57] LABS: Calcium 13.6 mg/dL (8.4-10.2)
[2020-10-20 10:04] LABS: Large Platelets Present
[2020-10-20] MEDS: ACETAMINOPHEN TAB 325 MG TAB PO PRN (13:16)
[2020-10-20] MEDS: SODIUM CHLORIDE 0.9% 1,000 ML IV SCH (13:24)
[2020-10-20 15:15] VITALS: BMI 38.9
--- NOTE | 2020-10-20 15:16 | CONS ---
CONSULTATION REASON FOR CONSULT: Renal failure and hypercalcemia. HISTORY OF PRESENT ILLNESS: Patient is an 85-year-old female who was admitted to the hospital with complaints of increased weakness, not feeling well and altered mentation. The patient is a poor historian. Most of the history is obtained from chart review. She did admit that she has been taking calcium supplements and she was noted to have a serum calcium of 14.4. Creatinine was 2.2. It is now down to 1.29. Patient is currently maintained on IV fluids. The patient denies any previous history of kidney diseases. She was maintained on ALEX inhibitors prior to admission. Currently patient has been voiding. She denies any significant nausea, vomiting, abdominal pain or diarrhea. PAST MEDICAL HISTORY: Hypertension, atrial fibrillation, fibromyalgia, hyperlipidemia, osteoarthritis, hypothyroidism, skin cancer. PAST SURGICAL HISTORY: Cholecystectomy, hysterectomy, right knee arthroplasty, tonsillectomy. SOCIAL HISTORY: Negative for smoking, drug abuse or alcohol abuse. MEDICATIONS: Medications prior to admission included Cipro, tramadol, Coumadin, calcium, hydralazine, Maxzide, Lipitor, Cymbalta, Synthroid, Zestril. PHYSICAL EXAMINATION: Patient is comfortable, awake, not in any acute distress. Blood pressure is 125/68, heart rate 79 per minute. She is afebrile. Examination of the heart S1, S2. Examination of the lungs, bilateral breath sounds are heard. Abdomen is soft, nontender, obese. Examination of lower extremities shows chronic skin changes. Trace edema noted. [employer] exam grossly intact. The patient is somewhat confused, but moving all 4 extremities. LAB: Show sodium 134, potassium 4.3, chloride 105, BUN 50, creatinine 1.29. INR 5.2, calcium is 13.6 from 14.4 yesterday, call virus not detected. Albumin 3.9. UA is quite benign. ASSESSMENT: 1. Acute kidney injury associated with volume depletion as well as hypercalcemia, currently significantly improved. 2. Mental status changes associated with hypercalcemia. 3. Hypercalcemia associated with calcium supplements and acute kidney injury. Check PTH levels and vitamin D level along with serum and urine immunofixation. Continue with saline and continue to hold off on the thiazide diuretics and the calcium supplements. 4. Hypothyroidism. PLAN: Continue with IV fluids. Continue to hold the thiazide diuretics. The patient is advised to stop calcium supplements. Check PTH levels, vitamin D levels and serum and urine immunofixation. Repeat labs in a.m. Thank you for this consultation. We will continue to follow the patient with you during her hospitalization. ROBERT / JACKN: [id number] /
--- NOTE | 2020-10-20 15:59 | US ---
EXAMINATION TYPE: US kidneys/renal and bladder DATE OF EXAM: 10/20/2020 COMPARISON: NONE CLINICAL HISTORY: RF. RF Exam extremely limited due to body habitus and over lying bowel gas. EXAM MEASUREMENTS: Right Kidney: 7.7 x 4.2 x 3.9 cm Left Kidney: 9.7 6.2 x 4.7 cm Right Kidney: Limited lobulated borders not well visualized. Left Kidney: Limited borders not well visualized. Bladder: Not visualized. There is no evidence for hydronephrosis at this point in time. IMPRESSION: No sign of renal mass or obstruction. Limited exam.
--- NOTE | 2020-10-20 18:24 | P.HPIM ---
History of Present Illness H&P Date: 10/20/20 Chief Complaint: Altered Mental Status Initial Comments: 85-year-old female with hx of HLD, HTN, Afib, thyroid disorder, fibromyalgia presents today for chief complaint of altered mental status. Patient was recently admitted for a urinary tract infection August. She was on ciprofloxacin at that time. Family states that she was at Dr. tricia after she came home from the hospitalization was walking. They state that over the past week patient has regressed they state that she appears weak all over sometimes she leans in her chair to the left. They didn't know any facial droop speech changes and was stated that the patient family feels she is out of it. Denies fevers, chest pain, dyspnea, neck pain, nausea. Family states she coughs up the food she attempts to eat. No known history of falls/trauma. Patient is coumadin Patient has no additional complaints. Upon arrival patient appears well no acute distress. AAOx2-personal place does not know time. Workup in ED revealed elevated white blood count of 13.9. Elevated B UN/creatinine of 72/2.2 to; calcium elevated at 14.4; PT/INR of 49.8/5.2 Review of Systems REVIEW OF SYSTEMS: CONSTITUTIONAL: No fever, no malaise, no fatigue. HEENT: No recent visual problems or hearing problems. Denied any sore throat. CARDIOVASCULAR: No chest pain, orthopnea, PND, no palpitations, no syncope. PULMONARY: No shortness of breath, no cough, no hemoptysis. GASTROINTESTINAL: No diarrhea, no nausea, no vomiting, no abdominal pain. NEUROLOGICAL: No headaches, no weakness, no numbness. HEMATOLOGICAL: Denies any bleeding or petechiae. GENITOURINARY: Denies any burning micturition, frequency, or urgency. MUSCULOSKELETAL/RHEUMATOLOGICAL: Denies any joint pain, swelling, or any muscle pain. ENDOCRINE: Denies any polyuria or polydipsia. The rest of the 14-point review of systems is negative. 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, hx skin cancer History of Any Multi-Drug Resistant Organisms: None Reported Past Surgical History: Cholecystectomy, Hysterectomy, Joint Replacement, Tonsillectomy Additional Past Surgical History / Comment(s): rt knee replacement 2012 Past Anesthesia/Blood Transfusion Reactions: Motion Sickness Additional Past Anesthesia/Blood Transfusion Reaction / Comment(s): Pt received blood in 1961. Past Psychological History: Anxiety, Depression Smoking Status: Never smoker Past Alcohol Use History: None Reported Past Drug Use History: None Reported - Past Family History Mother Family Medical History: Cancer Additional Family Medical History / Comment(s): Lung cancer. Son(s) Family Medical History: Cancer Additional Family Medical History / Comment(s): skin cancer removal Medications and Allergies Home Medications Medication Instructions Recorded Confirmed Type Atorvastatin [Lipitor] 40 mg PO HS 03/27/14 10/19/20 History DULoxetine HCL [Cymbalta] 60 mg PO HS 03/27/14 10/19/20 History Latanoprost Ophth [Xalatan 0.005%] 1 drops BOTH EYES HS 03/27/14 10/19/20 History Levothyroxine Sodium [Synthroid] 100 mcg PO DAILY 03/27/14 10/19/20 History Lisinopril [Zestril] 10 mg PO DAILY 03/27/14 10/19/20 History Triamterene/Hydrochlorothiazid 0.5 tab PO DAILY 03/27/14 10/19/20 History [Maxzide 37.5-25] hydrALAZINE HCL [Apresoline] 25 mg PO HS 03/27/14 10/19/20 History Calcium Carbonate/Vitamin D3 1 tab PO DAILY 11/10/16 10/19/20 History [Calcium 600-Vit D3 400 Caplet] Cetirizine HCl [Zyrtec] 10 mg PO DAILY PRN 11/10/16 10/19/20 History Dorzolamide 2% [Trusopt 2%] 1 drops BOTH EYES BID 11/10/16 10/19/20 History Warfarin Sodium 2.5 tab PO Q48H 11/10/16 10/19/20 History Warfarin [Coumadin] 5 mg PO Q48H 11/10/16 10/19/20 History traMADol HCL/ACETAMINOPHEN 1 tab PO BID 11/10/16 10/19/20 History [Ultracet 37.5-325] Ciprofloxacin HCl [Cipro] 250 mg PO BID 10/19/20 10/19/20 History Allergies Allergy/AdvReac Type Severity Reaction Status Date / Time hydroxyzine HCl Allergy Rash/Hives Verified 10/19/20 11:01 [From Vistaril] hydroxyzine pamoate Allergy Rash/Hives Verified 10/19/20 11:01 [From Vistaril] Penicillins Allergy Rash/Hives Verified 10/19/20 11:01 adhesive tape AdvReac IV BANDAGE Verified 10/19/20 11:01 CAUSED SKIN REDNESS codeine AdvReac headache Verified 10/19/20 11:01 Physical Exam Vitals: Vital Signs Temp Pulse Pulse Resp BP BP Pulse Ox 10/20/20 12:28 97.7 F 87 15 102/73 92 L 10/20/20 04:38 97.6 F 79 17 125/68 93 L 10/19/20 20:21 98.0 F 102 H 16 97/61 97 10/19/20 20:00 16 10/19/20 17:23 97.7 F 88 16 102/71 94 L 10/19/20 14:09 95 19 90/54 94 L 10/19/20 13:12 98 18 93/66 98 Intake and Output 10/19/20 10/20/20 10/20/20 22:59 06:59 14:59 Other: Voiding Method Diaper Diaper Incontinent Incontinent # Voids 3 2 General: The patient is awake and alert, in no distress Eye: +1 mm pupils are equal, round and reactive to light, extra-ocular movements are intact. No nystagmus. There is normal conjunctiva bilaterally. No signs of icterus. Ears, nose, mouth and throat: There are moist mucous membranes and no oral lesions. Neck: The neck is supple, there is no tenderness or JVD. Cardiovascular: There is a regular rate and rhythm. No murmur, rub or gallop is appreciated. Respiratory: Lungs are clear to auscultation, respirations are non-labored, breath sounds are equal. No wheezes, stridor, rales, or rhonchi. Gastrointestinal: Soft, non-distended, non-tender abdomen without masses or organomegaly noted. There is no rebound or guarding present. Musculoskeletal: Normal ROM, no tenderness. Strength 5/5. Sensation intact. Radial and DP pulses equal bilaterally 2+. Neurological: A&O x 2. CN II-XII intact, There are no obvious motor or sensory deficits. Coordination appears grossly intact. Speech is drawn out but not slurred Skin: Skin is warm and dry and no rashes or lesions are noted. Psychiatric: Cooperative, slow to respond Results CBC & Chem 7: 10/20/20 09:21 10/20/20 09:21 Labs: Abnormal Lab Results - Last 24 Hours (Table) 10/20/20 10/20/20 Range/Units 09: 09:21 PT 50.2 H (9.0-12.0) sec INR 5.2 H* (<1.2) Sodium 134 L (137-145) mmol/L BUN 50 H (7-17) mg/dL Creatinine 1.29 H (0.52-1.04) mg/dL Glucose 138 H (74-99) mg/dL Calcium 13.6 H* (8.4-10.2) mg/dL Thrombosis Risk Factor Assmnt - Choose All That Apply Any of the Below Risk Factors Present?: Yes Each Factor Represents 1 point: Obesity (BMI >25), Swollen legs (current), Varicose veins Other Risk Factors: Yes Each Risk Factor Represents 2 Points: Malignancy Each Risk Factor Represents 3 Points: Age 75 years or older Other congenital or acquired thrombophilia - If yes, enter type in comment: No Thrombosis Risk Factor Assessment Total Risk Factor Score: 8 Thrombosis Risk Factor Assessment Level: High Risk Assessment and Plan Assessment: 1. Altered mental status; metabolic/toxic encephalopathy secondary to acute renal injury/possible UTI 2. Acute renal injury; IV fluid hydration; monitor strict DK's, daily weights, renal function and electrolytes; avoid nephrotoxic agents 3. Hypercalcemia/dehydration; slow IV fluid hydration with normal saline at a r ate of 75 mL an hour; monitor electrolytes closely 4. Possible UTI; patient was given a dose of Rocephin in ED; we will continue with current dose pending urine culture 5. Hypertension; hydralazine 25 mg daily; monitor blood pressure closely and slowly resume rest of home medications once renal function stabilizes 6. Hyperlipidemia; Lipitor 40 mg by mouth daily at bedtime 7. Hypothyroidism; levothyroxin 100 MCG daily 8. Atrial fibrillation/coagulopathy secondary to Coumadin; patient takes Coumadin 2.5 mg daily; we will hold Coumadin and monitor PT/INR; monitor for any signs of bleeding DVT prophylaxis; SCDs/subcu heparin CODE STATUS; full code
[2020-10-20] MEDS: ATORVASTATIN 40 MG TAB PO SCH (20:32)
[2020-10-20] MEDS: DULoxetine HCL 60 MG CAPSULE.DR PO SCH (20:33)
[2020-10-20] MEDS: hydrALAZINE HCL 25 MG TAB PO SCH (20:33)
[2020-10-20] MEDS: LATANOPROST 0.005% OPHTH DROPS 2.5 ML BTL BOTH EYES SCH (20:34)
[2020-10-21] MEDS: SODIUM CHLORIDE 0.9% 1,000 ML IV SCH ×2 (02:28→22:00)
[2020-10-21] MEDS: LEVOTHYROXINE 100 MCG TAB PO SCH (05:53)
[2020-10-21] MEDS: ACETAMINOPHEN TAB 325 MG TAB PO PRN ×2 (08:38→17:47)
[2020-10-21] MEDS: DORZOLAMIDE HCL 2% DROPS 10 ML BTL BOTH EYES SCH ×2 (08:39→21:55)
[2020-10-21 09:26] LABS: Basophils # (A) 0.04 X 10*3/uL (0.00-0.10); Basophils % (A) 0.4 %; Eosinophils # (A) 0.11 X 10*3/uL (0.04-0.35); Eosinophils % (A) 1.2 %; HCT 43.9 % (37.2-46.3); HGB 14.2 g/dL (12.0-15.0); Lymphocytes % (A) 19.9 %; MCH 31.1 pg (27.0-32.0); MCHC 32.3 g/dL (32.0-37.0); MCV 96.1 fL (80.0-97.0); Mean Platelet Volume 13.2 fL (9.5-12.2); Monocytes # (A) 1.09 X 10*3/uL (0.20-1.00); Monocytes % (A) 11.4 %; Neutrophils # (A) 6.35 X 10*3/uL (1.80-7.70); Neutrophils % (A) 66.7 %; Platelet Count 206 X 10*3/uL (140-440); RBC 4.57 X 10*6/uL (4.10-5.20); RDW 12.3 % (11.5-14.5); WBC 9.53 X 10*3/uL (4.50-10.00)
[2020-10-21 09:53] LABS: African American GFR (CKD) 53.4 (60.0-200.0); Anion Gap 5.2 mmol/L (4.00-12.00); BUN/Creat Ratio 28.18 Ratio (12.00-20.00); Calcium 12.7 mg/dL (8.7-10.3); Carbon Dioxide 25.8 mmol/L (21.6-31.8); Non-African American GFR(CKD) 46.1 (60.0-200.0); Potassium 3.5 mmol/L (3.5-5.5)
[2020-10-21 11:03] LABS: INR 3.6 (<1.2); Prothrombin Time 34.3 sec (9.0-12.0)
[2020-10-21 14:04] LABS: Appearance,Urine Clear (Clear); Bilirubin,Urine Negative (Negative); Blood,Urine Negative (Negative); Color,Urine Light Yellow; Glucose,Urine (UA) Trace (Negative); Ketones,Urine Negative (Negative); Leukocyte Esterase,Urine Negative (Negative); Nitrite,Urine Negative (Negative); Protein,Urine Negative (Negative); Specific Gravity,Urine 1.011 (1.001-1.035); Urobilinogen,Urine <2.0 mg/dL (<2.0)
--- NOTE | 2020-10-21 14:27 | PN ---
PROGRESS NOTE Patient is seen for followup for acute kidney injury and hypercalcemia. Her renal function has improved. The patient was maintained on calcium supplements which are currently discontinued. Her PTH was significantly elevated at 369 with a serum calcium of 12.7 mg/dL. PHYSICAL EXAMINATION: On examination today, patient denies any significant complaints. Blood pressure was 101/65, heart rate 96 per minute, she is afebrile. Examination of the heart S1, S2. Examination of the lungs, bilateral breath sounds are heard. Abdomen is soft, nontender. Examination of lower extremities shows no significant edema. PRIVACY SPECIALIST exam is grossly intact. LAB: Show sodium of 138, potassium 3.5, chloride 107, BUN 31, serum creatinine 1.1, calcium is 12.7, 25 hydroxy vitamin D was 17.2, PTH 369. ASSESSMENT: 1. Hypercalcemia secondary to primary hyperparathyroidism with significantly elevated PTH in the setting of hypercalcemia. The patient was on also calcium supplements, which are now discontinued. I will add Sensipar for the hypercalcemia. 2. Acute kidney injury associated with hypercalcemia and some degree of volume depletion, currently improving. 3. Mild hypokalemia. 4. Mental status changes associated with hypercalcemia. PLAN: Add Sensipar. Repeat labs in a.m. Obtain nuclear scan of the parathyroid glands, rule out adenoma. I do not believe patient is a candidate for surgery at this point. We will treat her hypercalcemia medically. MMODL / IJN: [id number] /
--- NOTE | 2020-10-21 15:19 | P.PN ---
Subjective Progress Note Date: 10/21/20 Principal diagnosis: Altered mental status Acute renal injury Hypercalcemia Hyperparathyroidism 85-year-old female patient brought to ED with altered mental status; workup in ED revealed an elevated B UN/creatinine of 72/2.2 and a calcium level of 14.4; patient is also on calcium supplements which was discontinued; patient is being treated with IV fluids and nephrology is on board 10/21/2020 Patient is seen and evaluated with son at bedside; family seems frustrated reporting that their questions and concerns are not being answered; I took about 20 minutes going over patient's present condition, on workup and results; also advised patient's of elevated parathyroid hormone levels with need for further workup; son is concerned that patient has declined to rapidly and is not sure if patient has been evaluated by neurology; urology consult has been placed Vital signs remained stable with temperature of 98.0 pulse 93, respirations 16 and blood pressure of 100/54 Labs are reviewed and reveal a downtrending PT/INR of 34/3.6; Coumadin remains on hold; calcium trended down from 13.6 yesterday down to 12.7 with vitamin D level of 17.2 and PTH of 369 which is consistent with primary hyperparathyroidism; nuclear scan of parathyroid is ordered and patient is started on Sensipar; we will continue to monitor calcium levels Objective - Vital Signs Vital signs: Vital Signs Temp 98.4 F 10/21/20 04:33 Pulse 96 10/21/20 04:33 Resp 16 10/21/20 04:33 BP 101/65 10/21/20 04:33 Pulse Ox 97 10/21/20 04:33 Intake & Output 10/20/20 10/21/20 10/21/20 18:59 06:59 18:59 Intake Total 1560 Output Total 600 675 Balance -600 885 Weight 99.79 kg Intake: Intake, IV Titration 1200 Amount Sodium Chloride 0.9% 1, 1200 000 ml @ 100 mls/hr IV . Q[facility]H [facility] Rx#:[id number] Oral 360 Output: Urine 600 675 Other: Voiding Method Diaper External Catheter Incontinent # Voids 2 - Exam - Constitutional General appearance: Present: average body habitus, cooperative, no acute distress - EENT Eyes: Present: anicteric sclerae, EOMI, PERRLA, normal appearance ENT: Present: hearing grossly normal, normal oropharynx Ears: bilateral: normal - Neck Neck: Present: normal ROM. Absent: lymphadenopathy, rigidity, thyromegaly Carotids: negative: bruit present Thyroid: bilateral: normal size, negative: enlarged, nodule - Respiratory Respiratory: bilateral: CTA, negative: rales, rhonchi, wheezing - Cardiovascular Rhythm: regular Heart sounds: normal: S1, S2 Abnormal Heart Sounds: Absent: systolic murmur, diastolic murmur - Gastrointestinal General gastrointestinal: Present: normal bowel sounds, soft. Absent: distended, organomegaly, tenderness - Genitourinary Genitourinary Comment(s): deferred - Integumentary Integumentary: Present: normal turgor. Absent: jaundiced, rash, ulcer - Neurologic Neurologic: Present: CNII-XII intact. Absent: focal deficits - Musculoskeletal Musculoskeletal: Present: gait normal, strength equal bilaterally - Psychiatric Psychiatric: Present: A&O x's 3, appropriate affect, intact judgment & insight - Labs CBC & Chem 7: 10/21/20 05:44 10/21/20 05:44 Labs: Abnormal Lab Results - Last 24 Hours (Table) 10/21/20 10/21/20 10/21/20 Range/Units 05:44 05:44 05:44 MPV 13.2 H (9.5-12.2) fL Monocytes # 1.09 H (0.20-1.00) X 10*3/uL BUN 31.0 H (9.0-27.0) mg/dL Est GFR (CKD-EPI)AfAm 53.4 L (60.0-200.0) Est GFR (CKD-EPI)NonAf 46.1 L (60.0-200.0) BUN/Creatinine Ratio 28.18 H (12.00-20.00) Ratio Glucose 188 H (70-110) mg/dL Calcium 12.7 H (8.7-10.3) mg/dL Vitamin D 25-Hydroxy 17.2 L (30.0-100.0) ng/mL PTH Intact 369.2 H (14.0-72.0) pg/mL Microbiology - Last 24 Hours (Table) 10/19/20 11:32 Blood Culture - Preliminary Blood No Growth after 24 hours Assessment and Plan Assessment: 1. Altered mental status; metabolic/toxic encephalopathy secondary to acute renal injury/possible UTI 2. Acute renal injury; IV fluid hydration; monitor strict DK's, daily weights, renal function and electrolytes; avoid nephrotoxic agents 3. Hypercalcemia/dehydration; slow IV fluid hydration with normal saline at a rate of 75 mL an hour; monitor electrolytes closely 4. Possible UTI; patient was given a dose of Rocephin in ED; we will continue with current dose pending urine culture 5. Hypertension; hydralazine 25 mg daily; monitor blood pressure closely and slowly resume rest of home medications once renal function stabilizes 6. Hyperlipidemia; Lipitor 40 mg by mouth daily at bedtime 7. Hypothyroidism; levothyroxin 100 MCG daily 8. Atrial fibrillation/coagulopathy secondary to Coumadin; patient takes Coumadin 2.5 mg daily; we will hold Coumadin and monitor PT/INR; monitor for any signs of bleeding DVT prophylaxis; SCDs/subcu heparin CODE STATUS; full code
--- NOTE | 2020-10-21 15:29 | P.CNNES ---
History of Present Illness Consult date: 10/21/20 Requesting physician: Arti Khoury Reason for Consult: altered mental status History of Present Illness: This is an 85-year-old woman with history of hypertension, hyperlipidemia, atrial fibrillation, hypothyroidism, fibromyalgia that presented to the emergency department on 10/19/2020 for altered mental status. History was obtained from medical records since the patient on able to provide that history for me at. It seems that the patient had a recent urinary tract infection in August and was treated with ciprofloxacin and after discharge the patient was discharged home and was walk-in. Seems that the patient the has been having a microsoft exchange administrator the last week where she appears weak all over and sometimes leans to the left. There is no known history of trauma. Patient is on Coumadin for her atrial fibrillation. Then I spoke with the patient's nurse who was in the room who stated that patient is alert, oriented X3 about 6 weeks ago. She uses a walker for the last 3 years because of bad knees. She has mild urinary incontinence for the last one years but is sharp and is not wobbly on walking other than having bad knees. She had urinary tract infect that was recurrent since 08/2020. Workup in the hospital consisted of: Initial vital signs blood pressure of 98/64, heart rate of 80, respiratory of 18, temperature of 98.8 Fahrenheit oral and pulse ox of 96% room air. CT of the head was done and shows degenerative and nonspecific white matter changes most typical of a remote ischemia. No acute hemorrhage or mass effect. Greater central compartment can sometimes be associated with normal pressure hydrocephalus correlate clinically. I personally reviewed the CT of the head and I do see that the patient has enlarged lateral and third ventricle but she also has generalized atrophy show was hard for me to conclude that. EKG is reported as age are fibrillation. Inferior infarct, age undetermined. Cannot rule out anterior infarct, age undetermined. Abnormal EKG. Initial white blood cell 13.9 but the most recent white blood cell is 9.5 which is normal. Sodium is 133 which was minimally low but then the repeated is 134. Initial BUN 72 and creatinine is 2.2. BUN has improved to 31 and creatinine has improved to 1.1. Calcium is the 14.4 and the most recent calcium is 12.7 which are elevated PTH is 369 which is elevated and the normal is between 14-72 Review of Systems Review of system is limited but pertinent positive and negative as per HPI. 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, hx skin cancer History of Any Multi-Drug Resistant Organisms: None Reported Past Surgical History: Cholecystectomy, Hysterectomy, Joint Replacement, Tonsillectomy Additional Past Surgical History / Comment(s): rt knee replacement 2012 Past Anesthesia/Blood Transfusion Reactions: Motion Sickness Additional Past Anesthesia/Blood Transfusion Reaction / Comment(s): Pt received blood in 1961. Past Psychological History: Anxiety, Depression Smoking Status: Never smoker Past Alcohol Use History: None Reported Past Drug Use History: None Reported - Past Family History Mother Family Medical History: Cancer Additional Family Medical History / Comment(s): Lung cancer. Son(s) Family Medical History: Cancer Additional Family Medical History / Comment(s): skin cancer removal Medications and Allergies Home Medications Medication Instructions Recorded Confirmed Type Atorvastatin [Lipitor] 40 mg PO HS 03/27/14 10/19/20 History DULoxetine HCL [Cymbalta] 60 mg PO HS 03/27/14 10/19/20 History Latanoprost Ophth [Xalatan 0.005%] 1 drops BOTH EYES HS 03/27/14 10/19/20 History Levothyroxine Sodium [Synthroid] 100 mcg PO DAILY 03/27/14 10/19/20 History Lisinopril [Zestril] 10 mg PO DAILY 03/27/14 10/19/20 History Triamterene/Hydrochlorothiazid 0.5 tab PO DAILY 03/27/14 10/19/20 History [Maxzide 37.5-25] hydrALAZINE HCL [Apresoline] 25 mg PO HS 03/27/14 10/19/20 History Calcium Carbonate/Vitamin D3 1 tab PO DAILY 11/10/16 10/19/20 History [Calcium 600-Vit D3 400 Caplet] Cetirizine HCl [Zyrtec] 10 mg PO DAILY PRN 11/10/16 10/19/20 History Dorzolamide 2% [Trusopt 2%] 1 drops BOTH EYES BID 11/10/16 10/19/20 History Warfarin Sodium 2.5 tab PO Q48H 11/10/16 10/19/20 History Warfarin [Coumadin] 5 mg PO Q48H 11/10/16 10/19/20 History traMADol HCL/ACETAMINOPHEN 1 tab PO BID 11/10/16 10/19/20 History [Ultracet 37.5-325] Ciprofloxacin HCl [Cipro] 250 mg PO BID 10/19/20 10/19/20 History Allergies Allergy/AdvReac Type Severity Reaction Status Date / Time hydroxyzine HCl Allergy Rash/Hives Verified 10/19/20 11:01 [From Vistaril] hydroxyzine pamoate Allergy Rash/Hives Verified 10/19/20 11:01 [From Vistaril] Penicillins Allergy Rash/Hives Verified 10/19/20 11:01 adhesive tape AdvReac IV BANDAGE Verified 10/19/20 11:01 CAUSED SKIN REDNESS codeine AdvReac headache Verified 10/19/20 11:01 Physical Examination - Vital Signs Vital Signs: Vital Signs Temp Pulse Resp BP Pulse Ox 10/21/20 13:00 98.0 F 93 16 100/54 98 10/21/20 04:33 98.4 F 96 16 101/65 97 10/20/20 20:14 97.7 F 90 16 129/83 96 10/20/20 20:00 16 Intake and Output 10/20/20 10/21/20 10/21/20 22:59 06:59 14:59 Intake Total 1560 300 Output Total 800 475 Balance -800 1085 300 Intake: Intake, IV Titration 1200 Amount Sodium Chloride 0.9% 1, 1200 000 ml @ 100 mls/hr IV . Q10H [facility] Rx#:[id number] Oral 360 300 Output: Urine 800 475 Other: Voiding Method External Catheter # Voids 2 Weight 99.79 kg GENERAL: The patient is lying in bed and is not in acute distress. CHEST: The heart rate is regular rate rhythm. No murmurs to auscultation. LUNG: Clear to auscultation bilaterally no wheezing noted throughout. Not labored breathing. ABDOMEN/GI: Bowel sounds present in all 4 quadrants. No tenderness to palpation throughout. NEUROLOGICAL: Limited because of patient's cooperation. Higher mental function: The patient is drowsy but awakeable to voice. She is oriented to self and place but not time. She is able to follow some simple commands. , Cranial nerves: The pupils are round, equal and reactive to light . No facial weakness. No dysarthria. Otherwise rest of cranial nerves are hard to assess because of cooperation. Motor: Gait is deferred because of her cooperation. She is able to move both hand but could not assess strength since not cooperating on exam. . Cerebellum: Could not assess. Sensation: Could not assess. Reflexes (right/left): Not assessed because of pain. Plantars are mute bilaterally. Results Urinalysis was showed was cloudy, looks a history was trace, urine white blood cells 4 and urine bacteria was rare. Toxicology the basic workup was nondetected. Coronavirus PCR: Not detected. PT of 49.8 on initial presentation and the INR is a 52 which is supratherapeutic the most recent INR is 3.6 which is better but still supratherapeutic - Laboratory Findings CBC and BMP: 10/21/20 05:44 10/21/20 05:44 Abnormal Lab Findings: Abnormal Labs 10/19/20 10/19/20 10/19/20 10:42 11:00 11:32 WBC 13.9 H Hct 46.6 H MPV Neutrophils # 8.8 H Monocytes # 1.4 H PT INR Sodium Chloride BUN Creatinine Est GFR (CKD-EPI)AfAm Est GFR (CKD-EPI)NonAf BUN/Creatinine Ratio Glucose POC Glucose (mg/dL) 136 H Calcium AST ALT Vitamin D 25-Hydroxy PTH Intact Urine Appearance Cloudy H Urine Glucose (UA) Ur Leukocyte Esterase Trace H Amorphous Sediment Moderate H Urine Bacteria Rare H Urine Mucus Rare H 10/19/20 10/19/20 10/20/20 11:32 12:10 09:21 WBC Hct MPV Neutrophils # Monocytes # PT 49.8 H 50.2 H INR 5.2 H* 5.2 H* Sodium 133 L Chloride 97 L BUN 72 H Creatinine 2.22 H Est GFR (CKD-EPI)AfAm Est GFR (CKD-EPI)NonAf BUN/Creatinine Ratio Glucose 142 H POC Glucose (mg/dL) Calcium 14.4 H* AST 50 H ALT 59 H Vitamin D 25-Hydroxy PTH Intact Urine Appearance Urine Glucose (UA) Ur Leukocyte Esterase Amorphous Sediment Urine Bacteria Urine Mucus 10/20/20 10/21/20 10/21/20 09:21 05:44 05:44 WBC Hct MPV Neutrophils # Monocytes # PT INR Sodium 134 L Chloride BUN 50 H 31.0 H Creatinine 1.29 H Est GFR (CKD-EPI)AfAm 53.4 L Est GFR (CKD-EPI)NonAf 46.1 L BUN/Creatinine Ratio 28.18 H Glucose 138 H 188 H POC Glucose (mg/dL) Calcium 13.6 H* 12.7 H AST ALT Vitamin D 25-Hydroxy 17.2 L PTH Intact 369.2 H Urine Appearance Urine Glucose (UA) Ur Leukocyte Esterase Amorphous Sediment Urine Bacteria Urine Mucus 10/21/20 10/21/20 10/21/20 05:44 10:01 13:50 WBC Hct MPV 13.2 H Neutrophils # Monocytes # 1.09 H PT 34.3 H INR 3.6 H Sodium Chloride BUN Creatinine Est GFR (CKD-EPI)AfAm Est GFR (CKD-EPI)NonAf BUN/Creatinine Ratio Glucose POC Glucose (mg/dL) Calcium AST ALT Vitamin D 25-Hydroxy PTH Intact Urine Appearance Urine Glucose (UA) Trace H Ur Leukocyte Esterase Amorphous Sediment Urine Bacteria Urine Mucus Assessment and Plan Assessment: This is an 85-year-old woman with multiple medical problems that presented to the emergency department on 10/19/2020 for altered mental status. Per family they felt like the patient has been off for the last 1 week. Altered mental status due to multiple factorial mostly due to metabolic encephalopathy with acute kidney injury, elevated calcium, mild elvated LFTs and slight hypotensive. Elevated calcium as well as parathyroid. Rule out hyperparathyroidism Mild elevated LFTS (AST 50 and ALT 59) Atrial fibrillation on Coumadin with supratherapeutic INR Acute kidney injury---improving Hypertension that presented with hypotension Hyperlipidemia Hypothyroidism Fibromyalgia Plan: I ordered ionized calcium, vitamin B-12, folate, ammonia level. I also ordered TSH. Next Regarding this reported dilation of the ventricles concerning for normal pressure hydrocephalus on CT head from history it does not seem convincing. The patient needs to follow-up with a neurosurgeon as an outpatient and get a large volume tap to see whether there is any improvement with the patient's gait mentation and if she does have improvement then the would recommend TRACK SUPERVISOR shunt. Regarding this elevated calcium with elevated parathyroid hormone I would recommend further workup. Elevated calcium can cause altered mental status. Will defer management to primary team. Will defer the rest of work-up to the primary team. The plan is discussed with the patient's nurse as well as the patient's son who is at bedside. Thank you for the consultation. Dr. Dewey will take over coverage for neurology service starting tomorrow (10/22/2020). Santiago Boswell MD Neuro-Hospitalist Time with Patient: Greater than 30
[2020-10-21] MEDS: DULoxetine HCL 60 MG CAPSULE.DR PO SCH (21:54)
[2020-10-21] MEDS: hydrALAZINE HCL 25 MG TAB PO SCH (21:54)
[2020-10-21] MEDS: ATORVASTATIN 40 MG TAB PO SCH (21:54)
[2020-10-21] MEDS: LATANOPROST 0.005% OPHTH DROPS 2.5 ML BTL BOTH EYES SCH (21:55)
[2020-10-22] MEDS: LEVOTHYROXINE 100 MCG TAB PO SCH (05:33)
[2020-10-22 06:29] LABS: Basophils % (A) 0 %; Eosinophils # (A) 0.2 k/uL (0-0.7); Eosinophils % (A) 3 %; HCT 45.2 % (34.0-46.0); HGB 14.9 gm/dL (11.4-16.0); Lymphocytes # (A) 2.3 k/uL (1.0-4.8); Lymphocytes % (A) 25 %; MCH 31.2 pg (25.0-35.0); MCHC 32.9 g/dL (31.0-37.0); MCV 94.9 fL (80.0-100.0); Mean Platelet Volume 10.7; Monocytes # (A) 0.9 k/uL (0-1.0); Monocytes % (A) 9 %; Neutrophils # (A) 5.7 k/uL (1.3-7.7); Neutrophils % (A) 61 %; Platelet Count 166 k/uL (150-450); RBC 4.76 m/uL (3.80-5.40); RDW 12.7 % (11.5-15.5); WBC 9.3 k/uL (3.8-10.6)
[2020-10-22 06:47] LABS: African American GFR (CKD) 76 (>60 ml/min/1.73 sqM); Anion Gap 8 mmol/L; Blood Urea Nitrogen 20 mg/dL (7-17); Carbon Dioxide 20 mmol/L (22-30); Chloride 109 mmol/L (98-107); Glucose 127 mg/dL (74-99); Non-African American GFR(CKD) 66 (>60 ml/min/1.73 sqM); Sodium 137 mmol/L (137-145)
[2020-10-22 06:57] LABS: Calcium 13.4 mg/dL (8.4-10.2); Potassium 4.5 mmol/L (3.5-5.1)
[2020-10-22] MEDS: DORZOLAMIDE HCL 2% DROPS 10 ML BTL BOTH EYES SCH ×2 (08:32→22:18)
[2020-10-22] MEDS: ACETAMINOPHEN TAB 325 MG TAB PO PRN (08:32)
[2020-10-22] MEDS: SODIUM CHLORIDE 0.9% 1,000 ML IV SCH ×2 (08:37→23:42)
[2020-10-22 09:57] LABS: INR 2.25 (0.90-1.11); Prothrombin Time 23.3 sec (9.9-11.9)
[2020-10-22] MEDS: CINACALCET 30 MG TAB PO SCH (11:36)
[2020-10-22] MEDS ORDERED: Magnesium Replacement Protocol 1 EACH MISC MISCELLANE PRN (12:19)
--- NOTE | 2020-10-22 12:25 | P.PN ---
Subjective Progress Note Date: 10/22/20 This is an 85-year-old female admitted with altered mental status, acute renal failure, hypercalcemia and multiple other medical issues. Maintained on IV fluid hydration, senispar. Calcium 13.4. No twitches, no shakes. Feels "sluggish" Renal function improving. Coumadin down to 2.25. Afebrile, maintai edwin O2 sats in the 90s on 2 L nasal cannula. Sensorium significantly improved. Denies chest pain, palpitations or shortness of breath. Objective - Vital Signs Vital signs: Vital Signs Temp 98.3 F 10/22/20 11:08 Pulse 108 H 10/22/20 11:08 Resp 16 10/22/20 11:08 BP 112/72 10/22/20 11:08 Pulse Ox 98 10/22/20 11:08 Intake & Output 10/21/20 10/22/20 10/22/20 18:59 06:59 18:59 Intake Total 300 1450 Output Total 600 Balance 300 850 Intake: Intake, IV Titration 1200 Amount Sodium Chloride 0.9% 1, 1200 000 ml @ 100 mls/hr IV . Q10H [facility] Rx#:[id number] Oral 300 250 Output: Urine 600 Other: Voiding Method Diaper External Catheter # Voids 350 - Exam PHYSICAL EXAM: VITAL SIGNS: As above GENERAL: Sitting up in bed ,Alert and oriented 2, appears tired, no acute distress. HEENT: Conjunctivae normal. eyes normal. Oral mucosa moist NECK: No JVD. No thyroid enlargement. CARDIOVASCULAR: S1, S2,irregular. No murmur RESPIRATION: Breath sounds diminished in the bases. No rhonchi or crackles. No wheezing. ABDOMEN: Soft, nontender . No guarding. no masses palpable. Bowel sounds he tierney. LEGS: Positive edema, no calf tenderness. NERVOUS SYSTEM: Cranial N 2-12 grossly normal. Moves all 4 limbs. Diffuse weakness, No focal deficits. Strength and sensation grossly intact.. Skin: Warm and dry, no rash. - Labs CBC & Chem 7: 10/22/20 06:00 10/22/20 06:10 Labs: Abnormal Lab Results - Last 24 Hours (Table) 10/21/20 10/22/20 10/22/20 Range/Units 13:50 06:00 06:10 PT 23.3 H (9.9-11.9) sec INR 2.25 H (0.90-1.11) Chloride 109 H (98-107) mmol/L Carbon Dioxide 20 L (22-30) mmol/L BUN 20 H (7-17) mg/dL Glucose 127 H (74-99) mg/dL Calcium 13.4 H* (8.4-10.2) mg/dL Urine Glucose (UA) Trace H (Negative) Microbiology - Last 24 Hours (Table) 10/19/20 11:32 Blood Culture - Preliminary Blood No Growth after 48 hours Assessment and Plan Assessment: 1. Altered mental status; metabolic,toxic encephalopathy secondary to hypercalcemia, acute renal injury, doubt UTI, UA negative. 2. Acute renal failure secondary to dehydration, hypercalcemia, improving 3. Hypercalcemia secondary to primary hyperparathyroidism in a patient who had been on calcium supplements. PTH 369, serum calcium 12.7. Maintained in sinus by her with calcium supplements discontinued. 4. Dehydration 5. Hypertension 6. Hyperlipidemia 7. Hypothyroidism 8. Chronic Atrial fibrillation 9. Hypercoagulopathy secondary to Coumadin, currently on hold, improving 9. Hypokalemia 10. Morbid obesity, BMI 39 11. Anxiety, depression 12. Osteoarthritis 13. Fibromyalgia Plan: Continue on current medication regime ,monitoring and symptomatic treatment. Maintain IV fluid hydration, senispar. DVT prophylaxis in place with heparin subcu. Protonix ordered for GI prophylaxis. Nuclear scan of parathyroid gland to rule out adenoma, outpatient. Increase ambulation as tolerated, up in chair for all meals, PT/OT consulted. Aggressive Pulmonary toileting with incentive spirometer ordered. Coumadin per pharmacy dosing. PCP, Dr. Zambrano will update son on plan of care. Prognosis guarded in a patient with multiple complex medical issues. The impression and plan of care has been dictated as directed. : I performed a history and examination of this patient, discussed the same with the dictator. I agree with the dictator's note ,documented as a scribe. Any additional findings or plans will be noted.
[2020-10-22] MEDS: PANTOPRAZOLE 40 MG/10 ML VIAL IVP SCH (13:19)
[2020-10-22 13:49] LABS: Ionized Calcium 7.1 mg/dL (4.5-5.3)
--- NOTE | 2020-10-22 15:00 | PN ---
PROGRESS NOTE Patient is seen for followup for hypercalcemia. This appears to be primary hyperparathyroidism as the PTH was significantly elevated at 369. The patient has been started on Sensipar today. She remains on IV fluids. No significant complaints today. PHYSICAL EXAMINATION: Blood pressure was 96/54, heart rate 90 per minute, patient is afebrile. Examination of the heart S1, S2. Examination of lungs decreased breath sounds at bases. Abdomen is soft, nontender. Examination of lower extremities shows chronic skin changes, no significant edema noted. LAB: Show sodium of 137, potassium 4.5, chloride 109. CO2 is 20, BUN 20, serum creatinine 0.82, and calcium is 13.4. ASSESSMENT: 1. Acute kidney injury secondary to hypercalcemia and hypovolemia currently improved. 2. Hypercalcemia associated with primary hyperparathyroidism, started on Sensipar. 3. Mental status changes secondary to hypercalcemia. PLAN: Continue with the Sensipar. Check parathyroid nuclear scan, however, patient is not a candidate for surgery given her advanced age. MMODL / IJN: [id number] /
[2020-10-22] MEDS: MAGNESIUM SULFATE-D5W PMX 1 GM in DEXTROSE/WATER 1 100ML.BAG IVPB SCH ×3 (15:26→17:26)
[2020-10-22] MEDS ORDERED: SODIUM CHLORIDE 0.9% 250 ML with PAMIDRONATE 30 MG IV ONE ×2 (16:00)
[2020-10-22] MEDS ORDERED: WARFARIN 2.5 MG TAB PO ONE (18:00)
[2020-10-22] MEDS: LATANOPROST 0.005% OPHTH DROPS 2.5 ML BTL BOTH EYES SCH (22:18)
[2020-10-22] MEDS: DULoxetine HCL 60 MG CAPSULE.DR PO SCH (22:19)
[2020-10-22] MEDS: ATORVASTATIN 40 MG TAB PO SCH (22:19)
[2020-10-23] MEDS: LEVOTHYROXINE 100 MCG TAB PO SCH (06:11)
[2020-10-23 07:31] LABS: Basophils % (A) 0 %; Eosinophils # (A) 0.1 k/uL (0-0.7); Eosinophils % (A) 1 %; HCT 41.4 % (34.0-46.0); HGB 13.7 gm/dL (11.4-16.0); Lymphocytes % (A) 24 %; MCHC 33.1 g/dL (31.0-37.0); MCV 96.6 fL (80.0-100.0); Mean Platelet Volume 9.6; Monocytes # (A) 0.8 k/uL (0-1.0); Monocytes % (A) 9 %; Neutrophils # (A) 5.5 k/uL (1.3-7.7); Neutrophils % (A) 64 %; Platelet Count 189 k/uL (150-450); RBC 4.28 m/uL (3.80-5.40); RDW 12.2 % (11.5-15.5); WBC 8.6 k/uL (3.8-10.6)
[2020-10-23 07:46] LABS: African American GFR (CKD) 69 (>60 ml/min/1.73 sqM); Anion Gap 6 mmol/L; Blood Urea Nitrogen 14 mg/dL (7-17); Calcium 12.3 mg/dL (8.4-10.2); Carbon Dioxide 26 mmol/L (22-30); Chloride 106 mmol/L (98-107); Glucose 158 mg/dL (74-99); Magnesium 1.7 mg/dL (1.6-2.3); Non-African American GFR(CKD) 60 (>60 ml/min/1.73 sqM); Potassium 3.1 mmol/L (3.5-5.1); Sodium 138 mmol/L (137-145)
[2020-10-23 07:54] LABS: INR 1.7 (<1.2); Prothrombin Time 16.4 sec (9.0-12.0)
[2020-10-23] MEDS ORDERED: Potassium Replacement Protocol 1 EACH MISC MISCELLANE PRN (07:54)
[2020-10-23] MEDS: DORZOLAMIDE HCL 2% DROPS 10 ML BTL BOTH EYES SCH ×2 (08:58→21:10)
[2020-10-23] MEDS: PANTOPRAZOLE 40 MG/10 ML VIAL IVP SCH (08:58)
[2020-10-23] MEDS: CINACALCET 30 MG TAB PO SCH (08:58)
[2020-10-23] MEDS: POTASSIUM BICARBONATE/CIT AC 20 MEQ TABLET.EFF NG-TUBE SCH ×2 (09:00→10:52)
--- NOTE | 2020-10-23 12:16 | P.PN ---
Subjective Progress Note Date: 10/23/20 This is an 85-year-old female admitted with altered mental status, acute renal failure, hypercalcemia and multiple other medical issues. Maintained on IV fluid hydration, senispar. Calcium 13.4. No twitches, no shakes. Feels "sluggish" Renal function improving. Coumadin down to 2.25. Afebrile, maintai edwin O2 sats in the 90s on 2 L nasal cannula. Sensorium significantly improved. Denies chest pain, palpitations or shortness of breath. 10/23/2020 Yesterday received 1 dose of pamidronate for ionized calcium of 7.1. Scheduled for nuclear scan of Parathyroid this morning. Continues on Sensipar. Calcium 12.3. Potassium 3.1, magnesium 1.7. Maintained on IV fluid hydration, mild tachycardia with heart rates in the low 100s. Evaluated by physical therapy, patient requiring 100% assistance. PCP, Dr. Zambrano discussed with family, patient will need subacute rehab at discharge. Renal function remained stable. Afebrile, normal WBC. O2 weaned off, currently maintaining O2 sats in the low 90s on room air. INR 1.7, anticoagulated on Coumadin. Objective - Vital Signs Vital signs: Vital Signs Temp 97.9 F 10/23/20 04:27 Pulse 105 H 10/23/20 04:27 Resp 16 10/22/20 11:08 BP 107/77 10/23/20 04:27 Pulse Ox 93 L 10/23/20 04:27 Intake & Output 10/22/20 10/23/20 10/23/20 18:59 06:59 18:59 Output Total 300 Balance -300 Output: Urine 300 Other: Voiding Method Diaper External Catheter - Exam PHYSICAL EXAM: VITAL SIGNS: As above GENERAL: Sitting up in bed ,Alert and oriented 2, no acute distress. HEENT: Conjunctivae normal. eyes normal. Oral mucosa moist. NECK: No JVD. No thyroid enlargement. CARDIOVASCULAR: S1, S2,irregular. No murmur RESPIRATION: Breath sounds diminished in the bases. No rhonchi or crackles. No wheezing. ABDOMEN: Soft, nontender . No guarding. no masses palpable. Bowel sounds heard. LEGS: Positive edema, no calf tenderness. NERVOUS SYSTEM: Cranial N 2-12 grossly normal. Moves all 4 limbs. Diffuse weakness, No focal deficits. Skin: Warm and dry, no rash. - Labs CBC & Chem 7: 10/23/20 06:46 10/23/20 06:46 Labs: Abnormal Lab Results - Last 24 Hours (Table) 10/21/20 10/22/20 10/22/20 Range/Units 05:44 06:00 13:02 PT 23.3 H (9.9-11.9) sec INR 2.25 H (0.90-1.11) Potassium (3.5-5.1) mmol/L Glucose (74-99) mg/dL Calcium (8.4-10.2) mg/dL Ionized Calcium Luz 7.1 H* (4.5-5.3) mg/dL Magnesium (1.6-2.3) mg/dL Vit D 1,25-Dihydroxy 18 L (20 - 79) pg/mL 10/22/20 10/23/20 10/23/20 Range/Units 13:02 06:46 06:46 PT 16.4 H (9.9-11.9) sec INR 1.7 H (0.90-1.11) Potassium 3.1 L (3.5-5.1) mmol/L Glucose 158 H (74-99) mg/dL Calcium 12.3 H (8.4-10.2) mg/dL Ionized Calcium Luz (4.5-5.3) mg/dL Magnesium 1.3 L (1.6-2.3) mg/dL Vit D 1,25-Dihydroxy (20 - 79) pg/mL Microbiology - Last 24 Hours (Table) 10/19/20 11:32 Blood Culture - Preliminary Blood No Growth after 72 hours Assessment and Plan Assessment: 1. Altered mental status; metabolic,toxic encephalopathy secondary to hypercalcemia, acute renal injury, doubt UTI, UA negative. 2. Acute renal failure secondary to dehydration, hypercalcemia, improving 3. Hypercalcemia secondary to primary hyperparathyroidism in a patient who had been on calcium supplements. PTH 369, serum calcium 12.7. Maintained in sinus by her with calcium supplements discontinued. 4. Dehydration 5. Hypertension 6. Hyperlipidemia 7. Hypothyroidism 8. Chronic Atrial fibrillation 9. Hypercoagulopathy secondary to Coumadin, currently on hold, improving 9. Hypokalemia 10. Morbid obesity, BMI 39 11. Anxiety, depression 12. Osteoarthritis 13. Fibromyalgia 14. Hypomagnesemia Plan: Continue on current medication regime ,monitoring and symptomatic treatm ent. Potassium and magnesium supplementation as per replacement protocol ordered-discussed with RN. Continue IV fluid hydration, senispar. As mentioned above evaluated by PT with subacute rehab recommended at discharge-discussed with family as per PCP. Daily PT. Aggressive Pulmonary toileting with incentive spirometer ordered. Coumadin per pharmacy dosing. PCP, Dr. Zambrano will update son on plan of care. Prognosis guarded in a patient with multiple complex medical issues. The impression and plan of care has been dictated as directed. : I performed a history and examination of this patient, discussed the same with the dictator. I agree with the dictator's note ,documented as a scribe. Any additional findings or plans will be noted.
--- NOTE | 2020-10-23 15:11 | NM ---
EXAMINATION TYPE: NM parathyroid w/spect DATE OF EXAM: 10/23/2020 COMPARISON: CT chest 09/14/2019 HISTORY: hyperparathyroidism TECHNIQUE: Following administration of 25 mCi Tc99m Sestamibi. Anterior projection images of the neck and chest were obtained 15 minutes and 5 hours post injection. SPECT images of the neck and chest were obtaine d and reconstructed in three axes. FINDINGS: Thyroid tracer washout: Delayed images demonstrate near-complete tracer washout from the thyroid. Parathyroid uptake: There is some uptake that persists in the thoracic inlet level on delayed imaging which may correspond to the soft tissue mass noted on prior chest CT Normal uptake: There is physiological tracer uptake in the salivary glands and thyroid gland. IMPRESSION: Findings suggest parathyroid adenoma
[2020-10-23] MEDS: SODIUM CHLORIDE 0.9% 1,000 ML IV SCH (15:14)
--- NOTE | 2020-10-23 17:38 | PN ---
PROGRESS NOTE Patient is seen for followup for hypercalcemia and acute kidney injury. She has been started on Sensipar. Serum calcium is decreased to 12.3. In the meantime, renal function has improved significantly, with creatinine down to 0.8 mg/dL. Patient's son is present at bedside. Overall she states she is feeling better. PHYSICAL EXAMINATION: Blood pressure is 149/79, heart rate 62 per minute. She is afebrile. EXAMINATION OF THE HEART: S1 and S2. EXAMINATION OF LUNGS: Bilateral breath sounds are heard. Decreased breath sounds at bases. ABDOMEN: Soft, non-tender, obese. Examination of lower extremities shows trace edema. [employer] ARCHITECT exam is grossly intact. LABS: Sodium 138, potassium 3.9, chloride 106, BUN 14, creatinine 0.89. ASSESSMENT: 1. Hypercalcemia secondary to primary hyperparathyroidism, maintained on Sensipar. The parathyroid nuclear scan suggests parathyroid adenoma. Continue with the Sensipar for now. 2. Acute kidney injury secondary to hypercalcemia and volume depletion on initial admission, currently improved. 3. Generalized debility. 4. Mental status changes secondary to hypercalcemia. PLAN: Continue Sensipar as outpatient as well. Continue with physical therapy and encourage increased oral intake. MMODL / IJN: [id number] /
[2020-10-23] MEDS ORDERED: WARFARIN 5 MG TAB PO ONE (18:00)
[2020-10-23] MEDS: LATANOPROST 0.005% OPHTH DROPS 2.5 ML BTL BOTH EYES SCH (21:10)
[2020-10-23] MEDS: ATORVASTATIN 40 MG TAB PO SCH (21:26)
[2020-10-23] MEDS: DULoxetine HCL 60 MG CAPSULE.DR PO SCH (21:26)
[2020-10-24] MEDS: SODIUM CHLORIDE 0.9% 1,000 ML IV SCH ×2 (05:51→10:51)
[2020-10-24] MEDS: LEVOTHYROXINE 100 MCG TAB PO SCH (05:51)
[2020-10-24 07:19] VITALS: BP 119/80; PULSE 115; RESP 20; TEMP 97.6
--- NOTE | 2020-10-24 08:17 | P.DS ---
Providers Date of admission: 10/19/20 12:58 Expected date of discharge: 10/24/20 Attending physician: Julio Zambrano Consults: 10/19/20 13:12 Consult Physician Routine Consulting Provider: Moraima Rubi Consult Reason/Comments: BR[place]GET[place], hypercalcemia Do you want consulting provider notified?: Yes, Notify in am 10/21/20 12:29 Consult Physician Routine Consulting Provider: Santiago Boswell Consult Reason/Comments: cognition change Do you want consulting provider notified?: Yes Primary care physician: Julio Zambrano [facility] Course: Final Diagnoses: 1. Altered mental status; metabolic,toxic encephalopathy secondary to hypercalcemia, acute renal injury, doubt UTI, UA negative. 2. Acute renal failure secondary to dehydration, hypercalcemia, improving 3. Hypercalcemia secondary to primary hyperparathyroidism in a patient who had been on calcium supplements. PTH 369, serum calcium 12.7. Maintained on Senispar with calcium supplements discontinued. Parathyroid nuclear Scan sugg esting parathyroid adenoma. 4. Dehydration 5. Hypertension 6. Hyperlipidemia 7. Hypothyroidism 8. Chronic Atrial fibrillation 9. Hypercoagulopathy secondary to Coumadin, currently on hold, improving 9. Hypokalemia 10. Morbid obesity, BMI 39 11. Anxiety, depression 12. Osteoarthritis 13. Fibromyalgia 14. Hypomagnesemia Hospital course:This is an 85-year-old female admitted with altered mental status, acute renal failure, hypercalcemia and multiple other medical issues. Maintained on IV fluid hydration, senispar. Calcium 13.4. No twitches, no shakes. Feels "sluggish" Renal function improving. Coumadin down to 2.25. Afebrile, maintaining O2 sats in the 90s on 2 L nasal cannula. Sensorium significantly improved. Denies chest pain, palpitations or shortness of breath. 10/23/2020 Yesterday received 1 dose of pamidronate for ionized calcium of 7.1. Scheduled for nuclear scan of Parathyroid this morning. Continues on Sensipar. Calcium 12.3. Potassium 3.1, magnesium 1.7. Maintained on IV fluid hydration, mild tachycardia with heart rates in the low 100s. Evaluated by physical therapy, patient requiring 100% assistance. PCP, Dr. Zambrano discussed with family, patient will need subacute rehab at discharge. Renal function remained stable. Afebrile, normal WBC. O2 weaned off, currently maintaining O2 sats in the low 90s on room air. INR 1.7, anticoagulated on Coumadin. Completed Parathyroid nuclear Scan suggesting parathyroid adenoma. Per nephrology patient is not a candidate for surgery secondary to her advanced age. Patient will be discharged today to subacute rehab in stable condition with her prognosis pending final DC recommendations and clearance from nephrology. The impression and plan of care has been dictated as directed. : I performed a history and examination of this patient, discussed the same with the dictator. I agree with the dictator's note ,documented as a scribe. Any additional findings or plans will be noted. Patient Condition at Discharge: Stable Plan - Discharge Summary Discharge Rx Participant: No New Discharge Prescriptions: New Cinacalcet [Sensipar] 30 mg PO DAILY tab Acetaminophen Tab [Tylenol] 650 mg PO Q8HR PRN tab PRN Reason: Fever And/ Or Pain Continue Latanoprost Ophth [Xalatan 0.005%] 1 drops BOTH EYES HS Levothyroxine Sodium [Synthroid] 100 mcg PO DAILY DULoxetine HCL [Cymbalta] 60 mg PO HS Atorvastatin [Lipitor] 40 mg PO HS Cetirizine HCl [Zyrtec] 10 mg PO DAILY PRN PRN Reason: ALLERGIES Calcium Carbonate/Vitamin D3 [Calcium 600-Vit D3 400 Caplet] 1 tab PO DAILY Dorzolamide 2% [Trusopt 2%] 1 drops BOTH EYES BID Warfarin Sodium 2.5 tab PO Q48H Warfarin [Coumadin] 5 mg PO Q48H #0 Discontinued hydrALAZINE HCL [Apresoline] 25 mg PO HS Lisinopril [Zestril] 10 mg PO DAILY Triamterene/Hydrochlorothiazid [Maxzide 37.5-25] 0.5 tab PO DAILY traMADol HCL/ACETAMINOPHEN [Ultracet 37.5-325] 1 tab PO BID Ciprofloxacin HCl [Cipro] 250 mg PO BID Discharge Medication List Atorvastatin [Lipitor] 40 mg PO HS 03/27/14 [History] DULoxetine HCL [Cymbalta] 60 mg PO HS 03/27/14 [History] Latanoprost Ophth [Xalatan 0.005%] 1 drops BOTH EYES HS 03/27/14 [History] Levothyroxine Sodium [Synthroid] 100 mcg PO DAILY 03/27/14 [History] Calcium Carbonate/Vitamin D3 [Calcium 600-Vit D3 400 Caplet] 1 tab PO DAILY 11/10/16 [History] Cetirizine HCl [Zyrtec] 10 mg PO DAILY PRN 11/10/16 [History] Dorzolamide 2% [Trusopt 2%] 1 drops BOTH EYES BID 11/10/16 [History] Warfarin Sodium 2.5 tab PO Q48H 11/10/16 [History] Acetaminophen Tab [Tylenol] 650 mg PO Q8HR PRN tab 10/24/20 [Rx] Cinacalcet [Sensipar] 30 mg PO DAILY tab 10/24/20 [Rx] Warfarin [Coumadin] 5 mg PO Q48H #0 10/24/20 [Rx] Follow up Appointment(s)/Referral(s): Moraima Rubi MD [STAFF PHYSICIAN] - 1 Week Julio Zambrano DO [Primary Care Provider] - 1 Week (after dc from [facility]) Patient Instructions/Handouts: Hypercalcemia (DC), Hyperparathyroidism (GEN) Activity/Diet/Wound Care/Special Instructions: [facility]: cbc,BMP in 3 days pt/inr daily
[2020-10-24] MEDS: DORZOLAMIDE HCL 2% DROPS 10 ML BTL BOTH EYES SCH (08:31)
[2020-10-24] MEDS: CINACALCET 30 MG TAB PO SCH (08:31)
[2020-10-24] MEDS: PANTOPRAZOLE 40 MG/10 ML VIAL IVP SCH (08:32)
[2020-10-24 09:29] LABS: INR 1.58 (0.90-1.11); Prothrombin Time 16.7 sec (9.9-11.9)
--- NOTE | 2020-10-24 13:57 | PN ---
PROGRESS NOTE Patient is seen for followup for hypercalcemia. She has been started on Sensipar for primary hyperparathyroidism. Labs are pending from today. Overall, she denies any significant complaints. PHYSICAL EXAMINATION: On examination today, blood pressure was 119/80, heart rate 115 per minute. She is afebrile. The patient is awake, comfortable. Abdomen is soft, nontender. There is trace edema noted lower extremities. LABS: Labs are not available from today. Serum creatinine was 0.89 yesterday and calcium was 12.3. ASSESSMENT: 1. Hypercalcemia from hyperparathyroidism, started on Sensipar. 2. Mental status changes associated with hypercalcemia, currently improved. 3. Hypomagnesemia and hypokalemia, status post replacement. PLAN: Follow up on labs from today. Continue with daily Sensipar for now. MMODL / IJN: [id number] /
[2020-10-24 16:12] LABS: ALT 32 U/L (4-34); AST 32 U/L (14-36); African American GFR (CKD) 68 (>60 ml/min/1.73 sqM); Albumin 3.3 g/dL (3.5-5.0); Albumin/Globulin Ratio 1.1; Alkaline Phosphatase 84 U/L (38-126); Anion Gap 7 mmol/L; Blood Urea Nitrogen 18 mg/dL (7-17); Calcium 11.5 mg/dL (8.4-10.2); Carbon Dioxide 26 mmol/L (22-30); Chloride 104 mmol/L (98-107); Globulin 2.9 g/dL; Glucose 142 mg/dL (74-99); Non-African American GFR(CKD) 59 (>60 ml/min/1.73 sqM); Potassium 3.5 mmol/L (3.5-5.1); Sodium 137 mmol/L (137-145); Total Bilirubin 0.7 mg/dL (0.2-1.3); Total Protein 6.2 g/dL (6.3-8.2)
[2020-10-24] MEDS ORDERED: WARFARIN 5 MG TAB PO ONE (18:00)
== END 2020-10-24 18:53 | DRG 643 ==
LOC: EC 10:18 → 5NMEDONC 12:58
PROVIDERS: ADMIT Family Medicine; ATTEND Family Medicine
DX: E21.0 Primary hyperparathyroidism (principal); G92 Toxic encephalopathy; I48.20 Chronic atrial fibrillation, unspecified; N17.9 Acute kidney failure, unspecified; E03.9 Hypothyroidism, unspecified; E66.01 Morbid (severe) obesity due to excess calories; E78.5 Hyperlipidemia, unspecified; Z20.822 Contact with and (suspected) exposure to COVID-19; E86.0 Dehydration; E86.1 Hypovolemia; E87.6 Hypokalemia; F32.9 Major depressive disorder, single episode, unspecified; F41.9 Anxiety disorder, unspecified; I10 Essential (primary) hypertension; M19.90 Unspecified osteoarthritis, unspecified site; M79.7 Fibromyalgia; R79.1 Abnormal coagulation profile; T45.515A Adverse effect of anticoagulants, initial encounter; Z68.39 Body mass index [BMI] 39.0-39.9, adult; Z79.01 Long term (current) use of anticoagulants; Z79.890 Hormone replacement therapy; Z79.899 Other long term (current) drug therapy; Z80.1 Family history of malignant neoplasm of trachea, bronchus and lung; Z80.8 Family history of malignant neoplasm of other organs or systems; I95.9 Hypotension, unspecified; Z85.828 Personal history of other malignant neoplasm of skin; Z87.440 Personal history of urinary (tract) infections; Z90.710 Acquired absence of both cervix and uterus; Z96.651 Presence of right artificial knee joint; H40.9 Unspecified glaucoma; D35.1 Benign neoplasm of parathyroid gland; Z88.5 Allergy status to narcotic agent; Z88.0 Allergy status to penicillin; Z88.8 Allergy status to other drugs, medicaments and biological substances; R32 Unspecified urinary incontinence; I83.90 Asymptomatic varicose veins of unspecified lower extremity
CPT/HCPCS: 36415; 70450; 71046; 76770; 78071; 80048; 80053; 80306; 81001; 81003; 82140; 82306; 82330; 82607; 82652; 82747; 83605; 83735; 83970; 84132; 84443; 84484; 85025; 85610; 86334; 86335; 87040; 87635; 93005; 96361; 96374; 99285